=== PATIENT | female | born 1945 | race Caucasian/White ===

== ENCOUNTER 2018-05-19 18:18 | Inpatient (IN) | payer OTHER ==
[~2018-05-19] VITALS: Ht 170.2 cm; Wt 81.2 kg
[2018-05-20] VITALS (13 sets, daily range): BP systolic 95–114; BP diastolic 54–68; PULSE 64–150; RESP 18–22; Ht 170.2 cm; Wt 81.2 kg
[2018-05-20] MEDS ORDERED: GLUCAGON 1 MG INJ IM PRN (03:00)
[2018-05-20] MEDS ORDERED: ALBUTEROL/IPRATROPIUM (NEB) 3 ML AMP HHN PRN (03:00)
[2018-05-20] MEDS ORDERED: GLUCOSE GEL 15 GRAM TUBE PO PRN ×2 (03:00)
[2018-05-20] MEDS ORDERED: DEXTROSE 50% 50 ML SYRINGE IV PRN ×2 (03:00)
[2018-05-20] MEDS ORDERED: DILTIAZEM 25 MG INJ IV PRN (03:00)
[2018-05-20] MEDS ORDERED: ACETAMINOPHEN 325 MG TAB PO PRN (03:00)
[2018-05-20] MEDS ORDERED: GLUCOSE GEL 15 GRAM TUBE BUCCAL PRN (03:00)
[2018-05-20] MEDS ORDERED: LEVO-86 PO (04:10)
[2018-05-20] MEDS ORDERED: AMI25 PO (04:13)
[2018-05-20] MEDS: LEVOTHYROXINE 100 MCG TAB PO SCH (05:31)
[2018-05-20] MEDS: INSULIN ASPART [NOVOLOG] 3 ML PEN SC SCH ×4 (07:45→23:00)
[2018-05-20] MEDS: FAMOTIDINE 20 MG TAB PO SCH ×2 (08:10→20:45)
[2018-05-20] MEDS: METHYLPREDNISOLONE 40 MG INJ IV SCH (08:10)
[2018-05-20] MEDS: LISINOPRIL 5 MG TAB PO SCH (08:11)
[2018-05-20] MEDS: BUDESONIDE (NEB) 0.5MG/2ML AMP HHN SCH ×2 (09:16→21:05)
--- NOTE | 2018-05-20 18:44 | HP ---
DATE OF ADMISSION: 05/19/2018 CHIEF COMPLAINT: Shortness of breath. HISTORY OF PRESENTING ILLNESS: This is a 72-year-old female with a longstanding history of emphysema , hypertension and hypothyroidism, history of thyroid cancer in remission 4 years ago, status post ra diation, chronic history of smoking, alcohol use, who presented to [facility] on 05/15/2018 secondary to shortness of breath. According to the daughter, her mom was not feeling well, so she sh owed her to her own therapist and they told her to bring her to the emergency department. The patien jean-paul was brought into the [place] [facility]. The patient was having shortness of breath f or the past few days. The patient denied any chest pain. Her [place] records are currently not a vailable, but as per our conversation with the doctors there, the patient was found to be in COPD exa cerbation and also was found to have CHF. Echo was done that showed EF of 25% to 30%. Labs showed s odium of 133, potassium 4.5, chloride 102, bicarbonate 33, BUN of 17, creatinine 0.79. The patient a lso had a coronary angiogram done yesterday that per conversation were normal, but no official report s available. BNP was done and was 958. The patient was transferred to [facility] due to insurance reasons. PAST MEDICAL HISTORY: 1. Hypertension. 2. Hyperlipidemia. 3. COPD. 4. Cardiomyopathy. 5. Obesity. The patient was also found to be per records AFib there in [facility]. ALLERGIES: NONE. PAST SURGICAL HISTORY: Significant for . SOCIAL HISTORY: The patient is a chronic smoker, used to smoke packs per day; however, current ly uses vape. According to the daughter, the patient also drinks like 5 to 6 beers over the weekend. Denies any drug use. Currently lives at home with her daughter. MEDICATIONS: She takes at home: 1. Amitriptyline 25 p.o. at bedtime. 2. Levothyroxine 100. MEDICATIONS: She was discharged there: 1. Budesonide. 2. Coreg 3.125 b.i.d. 3. Pepcid 20 b.i.d. 4. Lisinopril 2.5. 5. Solu-Medrol 40 IV daily. 6. Levothyroxine. FAMILY HISTORY: Significant for heart problems in mother. REVIEW OF SYSTEMS: The patient states that the shortness of breath is improved. Denies any chest pa in. Denies any cough, any abdominal pain, nausea, vomiting, diarrhea. Denies any headache, any blur ry vision. Denies any focal neurological deficits. Currently on 2 liters of oxygen. EXAMINATION: VITAL SIGNS: Currently, blood pressure 95/55, temperature 97.6, pulse 84, respirations 22, saturatin g 94%. GENERAL: The patient is awake, alert, oriented, does not appear to be in any acute distress. HEENT: Pupils are equal, round, reactive to light. NECK: Supple. HEART: Regular rate and rhythm. LUNGS: Few rhonchi scattered bilaterally. ABDOMEN: Soft, nontender, nondistended, positive bowel sounds. EXTREMITIES: Trace edema. MUSCULOSKELETAL: The patient has a deformity of the back. The patient also has surgical scar on the right side of the neck. LABORATORY DATA: Shows BUN of 26, creatinine 0.64, calcium 8.8, glucose 129. White count of 9.1, he moglobin 13.9, platelet count 175. ASSESSMENT AND PLAN: This is a 72-year-old female who was admitted to [facility]: 1. Shortness of breath secondary to chronic obstructive pulmonary disease/congestive heart failure e xacerbation. 2. Nonischemic cardiomyopathy. 3. Cardiomyopathy with ejection fraction of 25% to 30%. 4. Emphysema. 5. History of nonsustained ventricular tachycardia. 6. Hypertension. 7. Hypothyroidism. 8. Obesity. 9. History of chronic smoking. PLAN: At this period of time, the patient will be admitted to telemetry. The patient will be contin ued on budesonide, Coreg, lisinopril. We will also start the patient also on Solu-Medrol. We will a lso call cardiology and pulmonary consultation. We will get an ABG and a chest x-ray. Rest of the t reatment will depend on the patient's hospitalization course. Dictated By: GLADYS HARVEY/HOSEA Conf#: [id number] DID#: [id number] CC: CAR YEN MD;*EndCC*
[2018-05-20] MEDS: AMITRIPTYLINE 25 MG TAB PO SCH (20:45)
[2018-05-20] MEDS: METOPROLOL (XL) 25 MG TAB PO SCH (20:46)
--- NOTE | 2018-05-20 23:48 | CONS ---
DATE OF ADMISSION: 05/19/2018 DATE OF CONSULTATION: 05/20/2018 REASON FOR CONSULTATION: Cardiomyopathy, congestive heart failure. REQUESTING PHYSICIAN: Kareen Casiano M.D. HISTORY OF PRESENT ILLNESS: This is a 72-year-old female with history of emphysema, hypertension, hy pothyroidism, thyroid cancer status post radiation, ongoing long-term tobacco intake with recent parmar ge to E-cigarettes when she came from [facility] to live here in the last 3 years who initially pre sented to [facility] on 05/15/2018 with complaints of dyspnea on exertion ongoing for approx imately 2 to 3 weeks. The patient states she additionally had increased phlegm production. At [place] through chart biopsy of the patient's at [place] have not been sent with her. The patient w as found to have chronic obstructive pulmonary disease exacerbation and associated congestive heart f ailure. She had 2-D echo revealing an EF of 25% to 30% and a left heart catheterization reportedly r evealing no significant obstructive major epicardial coronary artery disease. The patient continues to make improvement now has been transferred to [facility] for further evaluation a nd treatment. This is due to insurance reasons. Additionally, at the hospital, the patient was note d to have an episode of atrial fibrillation. PAST MEDICAL HISTORY: As above in HPI. MEDICATIONS CURRENTLY IN HOSPITAL: 1. Carvedilol 3.125 mg p.o. b.i.d. 2. Zestril 2.5 mg daily. 3. Synthroid. 4. Tylenol. 5. Amitriptyline. 6. Pepcid. 7. Pulmicort. 8. Solu-Medrol 40 mg IV daily. 9. Tylenol. 10. DuoNeb. 11. Diltiazem IV 10 mg q.6h. ALLERGIES: NO KNOWN DRUG ALLERGIES. SOCIAL HISTORY: Positive using tobacco, social ETOH, no illicit drug use. FAMILY HISTORY: No history of sudden cardiac or early CAD. REVIEW OF SYSTEMS: As above in HPI. CONSTITUTIONAL: No fevers, chills. PULMONARY: Shortness of breath. CARDIOVASCULAR: Congestive heart failure, cardiomyopathy, decreased left ventricular ejection fracti on. GASTROINTESTINAL: No vomiting. GENITOURINARY: No hematuria. MUSCULOSKELETAL: Degenerative joint disease. PSYCHIATRIC: The patient denies depression. NEUROLOGIC: No documented history of CVA. ENDOCRINE: Hypothyroidism, diabetes mellitus. PHYSICAL EXAMINATION: VITAL SIGNS: Temperature of 97.9, blood pressure 105/56, pulse 84, respirations 20, sat 95%. GENERAL: The patient is alert, awake, no acute distress. NECK: JVP approximately 8 to 9 cm of water. CHEST: Fair air movement throughout. HEART: Regular rate and rhythm. Normal S1, S2, I/ systolic murmur, nondisplaced PMI. ABDOMEN: Positive bowel sounds, soft. EXTREMITIES: No significant pitting edema, 1+ pulses bilateral posterior tibial. LABORATORIES: As above in HPI with a white count of 9.1, hemoglobin 10.9, platelet count 175. Sodiu m 139, potassium 4.9, creatinine of 0.6, BUN 29. HbA1c of 6.5, glucose of 228. ABG revealing a pH o f 7.372, PaO2 of 80, pCO2 of 68. IMAGING STUDIES: As above in HPI. No further imaging studies for my review at this time. ELECTROCARDIOGRAMS: No electrocardiograms for my review at this time. IMPRESSION: 1. Congestive heart failure, mitral valve, systolic, acute. 2. Cardiomyopathy with decreased left ventricular ejection fraction noted to be 25% to 30% by [facility] echo. 3. Hypertension with currently borderline hypotension. 4. Diabetes mellitus. 5. Hypothyroidism. 6. Ongoing tobacco usage, but with E-cigarettes at this time. 7. Chronic obstructive pulmonary disease. RECOMMENDATIONS: 1. At this time, we would maintain the patient on telemetry monitoring to follow rhythm and rate con trol closely. 2. Continue the patient's current Lisinopril. We will change the patient's carvedilol to beta 1 patrice ective beta robbi so as not to provoke any bronchospasm in the setting of a chronic obstructive pul monary disease. 3. We would likely place patient on low dose standing Lasix to assure good volume status. 4. We would obtain the patient's outside hospital records for 2D echo and left heart catheterization . 5. We would maintain the patient on telemetry. The patient on telemetry to assess for significant n kelly disorders in the setting of low EF. Additionally, given the patient's low EF, we would consider initiation of low dose Aldactone for neurohormonal modulation setting of systolic heart failure. Thank you for allowing me to take part in the care of this patient. I will continue to follow along very closely with you. Further recommendations will be made as the patient progresses through her in patient hospital clinical course. Dictated By: CAR LOWE/HOSEA Conf#: [id number] DID#: [id number] CC: CAR YEN MD; KAREEN CASIANO;*EndCC*
[2018-05-21] VITALS (15 sets, daily range): BP systolic 95–110; BP diastolic 50–63; PULSE 58–107; RESP 17–19
[2018-05-21] MEDS: LEVOTHYROXINE 100 MCG TAB PO SCH (06:30)
[2018-05-21] MEDS: INSULIN ASPART [NOVOLOG] 3 ML PEN SC SCH ×4 (08:00→22:24)
[2018-05-21] MEDS: BUDESONIDE (NEB) 0.5MG/2ML AMP HHN SCH ×2 (08:48→20:00)
[2018-05-21] MEDS: SPIRONOLACTONE 25 MG TAB PO SCH (09:12)
[2018-05-21] MEDS: METHYLPREDNISOLONE 40 MG INJ IV SCH (09:12)
[2018-05-21] MEDS: FAMOTIDINE 20 MG TAB PO SCH ×2 (09:12→21:56)
[2018-05-21] MEDS: FUROSEMIDE 20 MG TAB PO SCH (09:13)
[2018-05-21] MEDS: LISINOPRIL 5 MG TAB PO SCH (09:13)
[2018-05-21] MEDS: METOPROLOL (XL) 25 MG TAB PO SCH ×2 (09:14→21:58)
--- NOTE | 2018-05-21 10:30 | CONS ---
Assessment/Plan Assessment/Plan Assessment/Plan (Daily) Chest x-ray showing mild cardiomegaly with very minimal pulmonary vascular congestion. Assessment recommendations; 1. Patient admitted with history of what appears to be recent bronchitis with interval improvement on current treatment regimen. 2. Likely underlying COPD. With chronic type II respiratory failure. 3. History of right neck cancer status post surgical resection several years ago. 4. History of hypothyroidism and hypertension. 5. Mild CHF. Obtain repeat ABG. Wean down FiO2 to keep O2 saturation around 88-90%. Add DuoNeb every 6 hours scheduled. If the patient has persistent hypercapnia she would need noninvasive positive pressure ventilator for nocturnal use at home. Consultation Date/Type/Reason Admit Date/Time May 19, 2018 at 23:47 Date of Consultation: May 21, 2018 Type of Consult Pulmonary Patient is a 72-year-old lady who came into the hospital with a 2-day history of coughing with some shortness of breath. Upon evaluation a chest x-ray was done which is showing mild cardiomegaly, ABG also was done which is showing hypoxemic and hypercapnic respiratory failure which is partly compensated. By the time I saw the patient in the room, patient feeling much better and denies any further shortness of breath, also denies any nocturnal symptoms of shortness of breath at home, any daytime sleepiness or fatigue. According to her she is in generally good health at home. She denies any recent high fever, body aches or myalgias. Past medical history; 1 history of head and neck cancer, status post extensive right neck resection several years ago. 2. History of hypertension 3. Possibly COPD with chronic type II respiratory failure. 4. History of hypothyroidism. Medications; reviewed. Allergies; none. Social history; patient has an extensive smoking history. Family history; patient lives with her daughter at home. No history of any malignancy in the family. 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 Review of systems; denies any headache, seizures, visual changes. Any sinus symptoms. Denies any dysphagia. Shortness of breath has improved significantly since admission. Complains of very minimal cough, denies any wheezing, sputum production hemoptysis. Denies any abdominal pain, nausea vomiting. Any fever or chills. Any body aches or myalgias. Any orthopnea. Any snoring, daytime sleepiness or fatigue. General exam; elderly lady, awake alert, currently in no distress. On 2 L nasal cannula. Date/Time of Note DATE: 05/21/18 TIME: 10:26 Past Medical History Home Meds Reported Medications Amitriptyline Hcl* (Elavil*) 25 Mg Tab, 25 MG PO HS, #30 TAB 05/20/18 Levothyroxine Sodium* (Synthroid*) 100 Mcg Tablet, 100 MCG PO BEFORE BREAKFAST, #30 TAB 05/20/18 Medications Current Medications Acetaminophen (Tylenol Tab) 650 mg Q6H PRN PO MILD PAIN(1-3)OR ELEVATED TEMP; Start 05/20/18 at 03:00 Insulin Aspart (Novolog Insulin Pen) NOVOLOG *MILD* ALGORITHM WITH MEALS BEDTIME SC Last administered on 05/20/18at 23:00; Admin Dose 2 UNIT; Start 05/20/18 at 08:00 Amitriptyline HCl (Elavil) 25 mg HS PO Last administered on 05/20/18at 20:45; Admin Dose 25 MG; Start 05/20/18 at 21:00 Budesonide (Pulmicort (Neb)) 0.5 mg BID RESP THERAPY HHN Last administered on 05/21/18at 08:48; Admin Dose 0.5 MG; Start 05/20/18 at 09:00 Diltiazem HCl (Cardizem Iv) 10 mg Q6 PRN IV ELEVATED HEART RATE; Start 05/20/18 at 03:00 Famotidine (Pepcid) 20 mg BID PO Last administered on 05/21/18at 09:12; Admin Dose 20 MG; Start 05/20/18 at 09:00 Albuterol/ Ipratropium (Duoneb) 3 ml Q4H RESP THERAPY PRN HHN SHORTNESS OF BREATH Last administered on 05/20/18at 21:05; Admin Dose 3 ML; Start 05/20/18 at 03:00 Levothyroxine Sodium (Synthroid) 100 mcg DAILY@06 PO Last administered on 05/21/18at 06:30; Admin Dose 100 MCG; Start 05/20/18 at 06:00 Lisinopril (Zestril) 2.5 mg DAILY PO Last administered on 05/21/18at 09:13; Admin Dose 2.5 MG; Start 05/20/18 at 09:00 Methylprednisolone Sodium Succinate (Solu-Medrol) 40 mg DAILY IV Last administered on 05/21/18at 09:12; Admin Dose 40 MG; Start 05/20/18 at 09:00 Miscellaneous Information 1 ea NOTE XX ; Start 05/20/18 at 03:00 Glucose (Glutose) 15 gm Q15M PRN PO DECREASED GLUCOSE; Start 05/20/18 at 03:00 Glucose (Glutose) 22.5 gm Q15M PRN PO DECREASED GLUCOSE; Start 05/20/18 at 03:00 Dextrose (D50w Syringe) 25 ml Q15M PRN IV DECREASED GLUCOSE; Start 05/20/18 at 03:00 Dextrose (D50w Syringe) 50 ml Q15M PRN IV DECREASED GLUCOSE; Start 05/20/18 at 03:00 Glucagon (Glucagen) 1 mg Q15M PRN IM DECREASED GLUCOSE; Start 05/20/18 at 03:00 Glucose (Glutose) 15 gm Q15M PRN BUCCAL DECREASED GLUCOSE; Start 05/20/18 at 03:00 Metoprolol Succinate (Toprol Xl) 12.5 mg BID PO Last administered on 05/21/18at 09:14; Admin Dose 12.5 MG; Start 05/20/18 at 21:00 Spironolactone (Aldactone) 12.5 mg DAILY PO Last administered on 05/21/18at 09:12; Admin Dose 12.5 MG; Start 05/21/18 at 09:00 Furosemide (Lasix) 20 mg DAILY PO Last administered on 05/21/18at 09:13; Admin Dose 20 MG; Start 05/21/18 at 09:00 Allergies: Coded Allergies: No Known Allergy (Unverified , 05/20/18) Social History Smoking Status: Former smoker Exam/Review of Systems Exam Vitals Vital Signs Date Temp Pulse Resp B/P (MAP) Pulse Ox O2 O2 Flow FiO2 Time Delivery Rate 05/21/18 96 3.0 08:52 05/21/18 94 20 Nasal 08:51 Cannula 05/21/18 98.0 106/62 07:19 (77) Intake and Output 05/20/18 05/20/18 05/21/18 1515:00 23:00 07:00 IntakeIntake Total 900 ml 360 ml BalanceBalance 900 ml 360 ml Exam H EENT exam; supple neck, no JVD. No lymphadenopathy. Midline trachea. No thyromegaly. No neck masses. There are extensive postsurgical right neck changes. Patient has 2 remaining carious teeth. Chest exam; diminished but clear breath sounds. S1-S2 audible, no murmurs. Regular rhythm. Abdomen exam; soft, nontender. No organomegaly. Bowel sounds audible. Extremity exam; no peripheral edema. Patient does have patchy ecchymosis. 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 Results Result Diagram: 05/21/18 0535 05/21/18 0535 Results 24hrs Laboratory Tests Test 05/20/18 12:00 05/20/18 15:30 05/20/18 17:35 05/20/18 20:31 Bedside Glucose 187 228 H 233 H Blood Gas Blood arterial Specimen Source Arterial Blood 05/20/2018 4:15:3 Date Drawn 9 PM Arterial Blood pH 7.372 (Temp corrected) Arterial Blood 68.6 H pCO2 (Temp correct) Arterial Blood 80.9 pO2 (Temp corrected) Arterial Blood 38.9 H HCO3 Arterial Blood 10.5 H Base Excess Arterial Blood 95.5 Oxygen Saturation Cassius Test ACCEPTAB Arterial Blood Right Radial Gas Puncture Site Arterial 0.7 Blood Carboxyhemo globin Arterial Blood 0.2 Methemoglobin Blood Gas A-a O2 30.5 H Differential Oxyhemoglobin 94.6 Percent Blood Gas 37.0 Temperature Blood Gas NASAL CANNULA Modality FiO2 27.0 Blood Gas Notified Whom Blood Gas 05/20/2018 4:23:0 Notified Time 9 PM Test 05/21/18 01:40 05/21/18 05:35 Bedside Glucose 130 White Blood Count 9.2 Red Blood Count 4.55 Hemoglobin 13.8 Hematocrit 43.4 Mean Corpuscular 95.4 Volume Mean Corpuscular 30.3 Hemoglobin Mean Corpuscular 31.8 L Hemoglobin Concen t Red Cell 13.2 Distribution Width Platelet Count 179 Mean Platelet 10.2 Volume Immature 0.900 H Granulocytes % Neutrophils % 78.4 H Lymphocytes % 12.5 L Monocytes % 7.7 Eosinophils % 0.5 Basophils % 0.0 Nucleated Red 0.0 Blood Cells % Immature 0.080 H Granulocytes # Neutrophils # 7.2 Lymphocytes # 1.2 Monocytes # 0.7 Eosinophils # 0.1 Basophils # 0.0 Nucleated Red 0.0 Blood Cells # Sodium Level 138 Potassium Level 4.9 Chloride Level 96 L Carbon Dioxide 39 H Level Anion Gap 3 L Blood Urea 32 H Nitrogen Creatinine 0.67 Est Glomerular Filtrat Rate mL/min Glucose Level 140 Calcium Level 8.7 Phosphorus Level 4.5 Magnesium Level 2.1 Troponin I 0.122 *H B-Type 2510 H Natriuretic Peptide Triglycerides 57 Level Cholesterol Level 130 LDL Cholesterol, 54 Calculated HDL Cholesterol 65 Cholesterol/HDL 2.0 Ratio Medications Medication Current Medications Acetaminophen (Tylenol Tab) 650 mg Q6H PRN PO MILD PAIN(1-3)OR ELEVATED TEMP; Start 05/20/18 at 03:00 Insulin Aspart (Novolog Insulin Pen) NOVOLOG *MILD* ALGORITHM WITH MEALS BEDTIME SC Last administered on 05/20/18 23:00; Admin Dose 2 UNIT; Start 05/20/18 at 08:00 Amitriptyline HCl (Elavil) 25 mg HS PO Last administered on 05/20/18 20:45; Admin Dose 25 MG; Start 05/20/18 at 21:00 Budesonide (Pulmicort (Neb)) 0.5 mg BID RESP THERAPY HHN Last administered on 05/21/18 08:48; Admin Dose 0.5 MG; Start 05/20/18 at 09:00 Diltiazem HCl (Cardizem Iv) 10 mg Q6 PRN IV ELEVATED HEART RATE; Start 05/20/18 at 03:00 Famotidine (Pepcid) 20 mg BID PO Last administered on 05/21/18 09:12; Admin Dose 20 MG; Start 05/20/18 at 09:00 Albuterol/ Ipratropium (Duoneb) 3 ml Q4H RESP THERAPY PRN HHN SHORTNESS OF BREATH Last administered on 05/20/18 21:05; Admin Dose 3 ML; Start 05/20/18 at 03:00 Levothyroxine Sodium (Synthroid) 100 mcg DAILY@06 PO Last administered on 05/21/18 06:30; Admin Dose 100 MCG; Start 05/20/18 at 06:00 Lisinopril (Zestril) 2.5 mg DAILY PO Last administered on 05/21/18 09:13; Admin Dose 2.5 MG; Start 05/20/18 at 09:00 Methylprednisolone Sodium Succinate (Solu-Medrol) 40 mg DAILY IV Last administered on 4/12/19at 09:12; Admin Dose 40 MG; Start 05/20/18 at 09:00 Miscellaneous Information 1 ea NOTE XX ; Start 05/20/18 at 03:00 Glucose (Glutose) 15 gm Q15M PRN PO DECREASED GLUCOSE; Start 05/20/18 at 03:00 Glucose (Glutose) 22.5 gm Q15M PRN PO DECREASED GLUCOSE; Start 05/20/18 at 03:00 Dextrose (D50w Syringe) 25 ml Q15M PRN IV DECREASED GLUCOSE; Start 05/20/18 at 03:00 Dextrose (D50w Syringe) 50 ml Q15M PRN IV DECREASED GLUCOSE; Start 05/20/18 at 03:00 Glucagon (Glucagen) 1 mg Q15M PRN IM DECREASED GLUCOSE; Start 05/20/18 at 03:00 Glucose (Glutose) 15 gm Q15M PRN BUCCAL DECREASED GLUCOSE; Start 05/20/18 at 03:00 Metoprolol Succinate (Toprol Xl) 12.5 mg BID PO Last administered on 05/21/18at 09:14; Admin Dose 12.5 MG; Start 05/20/18 at 21:00 Spironolactone (Aldactone) 12.5 mg DAILY PO Last administered on 05/21/18at 09:12; Admin Dose 12.5 MG; Start 05/21/18 at 09:00 Furosemide (Lasix) 20 mg DAILY PO Last administered on 05/21/18at 09:13; Admin Dose 20 MG; Start 05/21/18 at 09:00 ROSAURA KU May 21, 2018 10:30
--- NOTE | 2018-05-21 14:16 | RADRPT ---
Vent Rate: 78 bpm RR Interval: 0 msec FL Interval: 132 msec QRS Duration: 158 msec QT Interval: 436 msec QTC Interval: 497 msec P-R-T [place]: 68 - 24 - 0 degrees Sinus rhythm with occasional premature ventricular complexes Left bundle branch block Abnormal ECG Electronically Signed By: Maksim Powell
--- NOTE | 2018-05-21 16:06 | PN ---
Date/Time of Note Date/Time of Note DATE: 05/21/18 TIME: 16:03 Assessment/Plan VTE Prophylaxis Risk score (from Ns)>0 risk: 6 SCD applied (from Ns): Yes Pharmacological prophylaxis: NA/contraindicated Pharm contraindication: low risk/ambulating Lines/Catheters IV Catheter Type (from Nrs): Saline Lock Assessment/Plan Assessment/Plan ASSESSMENT AND PLAN: This is a 72-year-old female who was admitted to [facility]: 1. Shortness of breath secondary to chronic obstructive pulmonary disease/congestive heart failure exacerbation. 2. Nonischemic cardiomyopathy. 3. Cardiomyopathy with ejection fraction of 25% to 30%. 4. l ikely underlying COPD. With chronic type II respiratory failure. 5. History of nonsustained ventricular tachycardia. 6. Hypertension. 7. Hypothyroidism. 8. Obesity. 9. History of chronic smoking. Plan -Continue with aspirin /statin/ beta-robbi -cw gentle Lasix/spironolactone -IV Diamox for metabolic alkalosis -cw with lisinopril 2.5 -Troponin elevated. However angiogram at [facility] was normal will get official cath reports -DuoNeb/Solu-Medrol - ? nbipap -fu up with the cardiology/pul Raj gi -/DVT prophylaxis Result Diagram: 05/21/18 0535 05/21/18 0535 Results 24hrs Laboratory Tests Test 05/20/18 17:35 05/20/18 20:31 05/21/18 01:40 05/21/18 05:35 Bedside Glucose 228 H 233 H 130 White Blood Count 9.2 Red Blood Count 4.55 Hemoglobin 13.8 Hematocrit 43.4 Mean Corpuscular 95.4 Volume Mean Corpuscular 30.3 Hemoglobin Mean Corpuscular 31.8 L Hemoglobin Concent Red Cell 13.2 Distribution Width Platelet Count 179 Mean Platelet Volume 10.2 Immature 0.900 H Granulocytes % Neutrophils % 78.4 H Lymphocytes % 12.5 L Monocytes % 7.7 Eosinophils % 0.5 Basophils % 0.0 Nucleated Red Blood 0.0 Cells % Immature 0.080 H Granulocytes # Neutrophils # 7.2 Lymphocytes # 1.2 Monocytes # 0.7 Eosinophils # 0.1 Basophils # 0.0 Nucleated Red Blood 0.0 Cells # Sodium Level 138 Potassium Level 4.9 Chloride Level 96 L Carbon Dioxide Level 39 H Anion Gap 3 L Blood Urea Nitrogen 32 H Creatinine 0.67 Est Glomerular Filtrat Rate mL/min Glucose Level 140 Calcium Level 8.7 Phosphorus Level 4.5 Magnesium Level 2.1 Troponin I 0.122 *H B-Type Natriuretic 2510 H Peptide Triglycerides Level 57 Cholesterol Level 130 LDL Cholesterol, 54 Calculated HDL Cholesterol 65 Cholesterol/HDL 2.0 Ratio Test 05/21/18 11:51 Bedside Glucose 173 Subjective 24 Hr Interval Summary Free Text/Dictation Short of breath at times. Exam/Review of Systems Exam Vitals Vital Signs Date Temp Pulse Resp B/P (MAP) Pulse Ox O2 O2 Flow FiO2 Time Delivery Rate 05/21/18 98.2 89 19 110/62 95 15:12 (78) 05/21/18 1.0 13:47 05/21/18 Nasal 13:46 Cannula Intake and Output 05/20/18 05/20/18 05/21/18 1515:00 23:00 07:00 IntakeIntake Total 900 ml 360 ml BalanceBalance 900 ml 360 ml Exam GENERAL: The patient is awake, alert, oriented, does not appear to be in any acute distress. HEENT: Pupils are equal, round, reactive to light. NECK: Supple. HEART: Regular rate and rhythm. LUNGS: Few rhonchi scattered bilaterally. ABDOMEN: Soft, nontender, nondistended, positive bowel sounds. EXTREMITIES: Trace edema. MUSCULOSKELETAL: The patient has a deformity of the back. The patient also has surgical scar on the right side of the neck. Results Results 24hrs Laboratory Tests Test 05/20/18 17:35 05/20/18 20:31 05/21/18 01:40 05/21/18 05:35 Bedside Glucose 228 H 233 H 130 White Blood Count 9.2 Red Blood Count 4.55 Hemoglobin 13.8 Hematocrit 43.4 Mean Corpuscular 95.4 Volume Mean Corpuscular 30.3 Hemoglobin Mean Corpuscular 31.8 L Hemoglobin Concent Red Cell 13.2 Distribution Width Platelet Count 179 Mean Platelet Volume 10.2 Immature 0.900 H Granulocytes % Neutrophils % 78.4 H Lymphocytes % 12.5 L Monocytes % 7.7 Eosinophils % 0.5 Basophils % 0.0 Nucleated Red Blood 0.0 Cells % Immature 0.080 H Granulocytes # Neutrophils # 7.2 Lymphocytes # 1.2 Monocytes # 0.7 Eosinophils # 0.1 Basophils # 0.0 Nucleated Red Blood 0.0 Cells # Sodium Level 138 Potassium Level 4.9 Chloride Level 96 L Carbon Dioxide Level 39 H Anion Gap 3 L Blood Urea Nitrogen 32 H Creatinine 0.67 Est Glomerular Filtrat Rate mL/min Glucose Level 140 Calcium Level 8.7 Phosphorus Level 4.5 Magnesium Level 2.1 Troponin I 0.122 *H B-Type Natriuretic 2510 H Peptide Triglycerides Level 57 Cholesterol Level 130 LDL Cholesterol, 54 Calculated HDL Cholesterol 65 Cholesterol/HDL 2.0 Ratio Test 05/21/18 11:51 Bedside Glucose 173 Medications Medication Current Medications Acetaminophen (Tylenol Tab) 650 mg Q6H PRN PO MILD PAIN(1-3)OR ELEVATED TEMP; Start 05/20/18 at 03:00 Insulin Aspart (Novolog Insulin Pen) NOVOLOG *MILD* ALGORITHM WITH MEALS BEDTIME SC Last administered on 05/21/18 11:56; Admin Dose 1 UNIT; Start 05/20/18 at 08:00 Amitriptyline HCl (Elavil) 25 mg HS PO Last administered on 05/20/18 20:45; Admin Dose 25 MG; Start 05/20/18 at 21:00 Budesonide (Pulmicort (Neb)) 0.5 mg BID RESP THERAPY HHN Last administered on 05/21/18 08:48; Admin Dose 0.5 MG; Start 05/20/18 at 09:00 Diltiazem HCl (Cardizem Iv) 10 mg Q6 PRN IV ELEVATED HEART RATE; Start 05/20/18 at 03:00 Famotidine (Pepcid) 20 mg BID PO Last administered on 05/21/18 09:12; Admin Dose 20 MG; Start 05/20/18 at 09:00 Albuterol/ Ipratropium (Duoneb) 3 ml Q4H RESP THERAPY PRN HHN SHORTNESS OF BREATH Last administered on 05/20/18 21:05; Admin Dose 3 ML; Start 05/20/18 at 03:00 Levothyroxine Sodium (Synthroid) 100 mcg DAILY@06 PO Last administered on 05/21/18 06:30; Admin Dose 100 MCG; Start 05/20/18 at 06:00 Lisinopril (Zestril) 2.5 mg DAILY PO Last administered on 05/21/18 09:13; Admin Dose 2.5 MG; Start 05/20/18 at 09:00 Methylprednisolone Sodium Succinate (Solu-Medrol) 40 mg DAILY IV Last administered on 05/21/18at 09:12; Admin Dose 40 MG; Start 05/20/18 at 09:00 Miscellaneous Information 1 ea NOTE XX ; Start 05/20/18 at 03:00 Glucose (Glutose) 15 gm Q15M PRN PO DECREASED GLUCOSE; Start 05/20/18 at 03:00 Glucose (Glutose) 22.5 gm Q15M PRN PO DECREASED GLUCOSE; Start 05/20/18 at 03:00 Dextrose (D50w Syringe) 25 ml Q15M PRN IV DECREASED GLUCOSE; Start 05/20/18 at 03:00 Dextrose (D50w Syringe) 50 ml Q15M PRN IV DECREASED GLUCOSE; Start 05/20/18 at 03:00 Glucagon (Glucagen) 1 mg Q15M PRN IM DECREASED GLUCOSE; Start 05/20/18 at 03:00 Glucose (Glutose) 15 gm Q15M PRN BUCCAL DECREASED GLUCOSE; Start 05/20/18 at 03:00 Metoprolol Succinate (Toprol Xl) 12.5 mg BID PO Last administered on 05/21/18at 09:14; Admin Dose 12.5 MG; Start 05/20/18 at 21:00 Spironolactone (Aldactone) 12.5 mg DAILY PO Last administered on 05/21/18at 09:12; Admin Dose 12.5 MG; Start 05/21/18 at 09:00 Furosemide (Lasix) 20 mg DAILY PO Last administered on 05/21/18at 09:13; Admin Dose 20 MG; Start 05/21/18 at 09:00 Albuterol/ Ipratropium (Duoneb) 3 ml Q6H RESP THERAPY N ; Start 05/21/18 at 14:00 Acetazolamide (Diamox) 500 mg ONCE ONCE IV ; Start 05/21/18 at 16:30; Stop 05/21/18 at 16:31; Status GLADYS HESTER MD May 21, 2018 16:06
[2018-05-21] MEDS: ALBUTEROL/IPRATROPIUM (NEB) 3 ML AMP HHN SCH ×2 (16:56→19:59)
[2018-05-21] MEDS ORDERED: ACETAZOLAMIDE 500 MG INJ IV ONE (17:00)
[2018-05-21] MEDS: ENOXAPARIN 40 MG/0.4 ML SYG SC SCH (17:20)
--- NOTE | 2018-05-21 17:20 | CONS ---
Assessment/Plan Assessment/Plan Hospital Course (Demo Recall) IMPRESSION: 1. Congestive heart failure, mitral valve, systolic, acute. 2. Cardiomyopathy with decreased left ventricular ejection fraction noted to be 25% to 30% by outside hospital echo. 3. Hypertension with currently borderline hypotension. 4. Diabetes mellitus. 5. Hypothyroidism. 6. Ongoing tobacco usage, but with E-cigarettes at this time. 7. Chronic obstructive pulmonary disease. 8. Positive troponin-reportedly negative LHC at OSH Recc: -Tele -Continue BB/ACEI -Continue lasix/aldactone and follow volume status closely -start asa -trend cardiac enzymes -await records from [facility] where LHC done Consultation Date/Type/Reason Admit Date/Time May 19, 2018 at 23:47 Initial Consult Date 05/21/18 Type of Consult Cardiology Reason for Consultation CHF/positive troponin Requesting Provider: GLADYS CASIANO MD Date/Time of Note DATE: 05/21/18 TIME: 17:16 Exam/Review of Systems Vital Signs Vitals Vital Signs Date Temp Pulse Resp B/P (MAP) Pulse Ox O2 O2 Flow FiO2 Time Delivery Rate 05/21/18 86 18 92 Aerosol 1.0 16:54 Non Rebreather Mask 05/21/18 98.2 110/62 15:12 (78) Intake and Output 05/20/18 05/20/18 05/21/18 1515:00 23:00 07:00 IntakeIntake Total 900 ml 360 ml BalanceBalance 900 ml 360 ml Exam Exam Review of Systems: CONSTITUTIONAL: No fevers, chills. PULMONARY: No sob CARDIOVASCULAR: No chest pain/palpitations GASTROINTESTINAL: No nausea/vomiting. GENITOURINARY: No hematuria/dysuria. MUSCULOSKELETAL: No myagias/arthalgias. PSYCHIATRIC: The patient denies depression. NEUROLOGIC: No weakness Constitutional: alert, oriented Psych: no complaints Head: normocephalic ENMT: mucosa pink and moist Neck: supple, jvd (9 cm water) Respiratory: diminished breath sounds Cardiovascular: regular rate and rhythm Gastrointestinal: soft, non-tender Musculoskeletal: muscle tone (normal) Extremities: edema (none) Neurological: other (No focal deficits) Labs Result Diagram: 05/21/18 0535 05/21/18 0535 Results 24hrs Laboratory Tests Test 05/20/18 17:35 05/20/18 20:31 05/21/18 01:40 05/21/18 05:35 Bedside Glucose 228 H 233 H 130 White Blood Count 9.2 Red Blood Count 4.55 Hemoglobin 13.8 Hematocrit 43.4 Mean Corpuscular 95.4 Volume Mean Corpuscular 30.3 Hemoglobin Mean Corpuscular 31.8 L Hemoglobin Concent Red Cell 13.2 Distribution Width Platelet Count 179 Mean Platelet Volume 10.2 Immature 0.900 H Granulocytes % Neutrophils % 78.4 H Lymphocytes % 12.5 L Monocytes % 7.7 Eosinophils % 0.5 Basophils % 0.0 Nucleated Red Blood 0.0 Cells % Immature 0.080 H Granulocytes # Neutrophils # 7.2 Lymphocytes # 1.2 Monocytes # 0.7 Eosinophils # 0.1 Basophils # 0.0 Nucleated Red Blood 0.0 Cells # Sodium Level 138 Potassium Level 4.9 Chloride Level 96 L Carbon Dioxide Level 39 H Anion Gap 3 L Blood Urea Nitrogen 32 H Creatinine 0.67 Est Glomerular Filtrat Rate mL/min Glucose Level 140 Calcium Level 8.7 Phosphorus Level 4.5 Magnesium Level 2.1 Troponin I 0.122 *H B-Type Natriuretic 2510 H Peptide Triglycerides Level 57 Cholesterol Level 130 LDL Cholesterol, 54 Calculated HDL Cholesterol 65 Cholesterol/HDL 2.0 Ratio Test 05/21/18 11:51 Bedside Glucose 173 Medications Medications Current Medications Acetaminophen (Tylenol Tab) 650 mg Q6H PRN PO MILD PAIN(1-3)OR ELEVATED TEMP; Start 05/20/18 at 03:00 Insulin Aspart (Novolog Insulin Pen) NOVOLOG *MILD* ALGORITHM WITH MEALS BEDTIME SC Last administered on 05/21/18at 11:56; Admin Dose 1 UNIT; Start 05/20/18 at 08:00 Amitriptyline HCl (Elavil) 25 mg HS PO Last administered on 05/20/18at 20:45; Admin Dose 25 MG; Start 05/20/18 at 21:00 Budesonide (Pulmicort (Neb)) 0.5 mg BID RESP THERAPY HHN Last administered on 05/21/18at 08:48; Admin Dose 0.5 MG; Start 05/20/18 at 09:00 Diltiazem HCl (Cardizem Iv) 10 mg Q6 PRN IV ELEVATED HEART RATE; Start 05/20/18 at 03:00 Famotidine (Pepcid) 20 mg BID PO Last administered on 05/21/18 09:12; Admin Dose 20 MG; Start 05/20/18 at 09:00 Albuterol/ Ipratropium (Duoneb) 3 ml Q4H RESP THERAPY PRN HHN SHORTNESS OF BREATH Last administered on 05/20/18at 21:05; Admin Dose 3 ML; Start 05/20/18 at 03:00 Levothyroxine Sodium (Synthroid) 100 mcg DAILY@06 PO Last administered on 05/21/18 06:30; Admin Dose 100 MCG; Start 05/20/18 at 06:00 Lisinopril (Zestril) 2.5 mg DAILY PO Last administered on 05/21/18 09:13; Admin Dose 2.5 MG; Start 05/20/18 at 09:00 Methylprednisolone Sodium Succinate (Solu-Medrol) 40 mg DAILY IV Last administered on 05/21/18 09:12; Admin Dose 40 MG; Start 05/20/18 at 09:00 Miscellaneous Information 1 ea NOTE XX ; Start 05/20/18 at 03:00 Glucose (Glutose) 15 gm Q15M PRN PO DECREASED GLUCOSE; Start 05/20/18 at 03:00 Glucose (Glutose) 22.5 gm Q15M PRN PO DECREASED GLUCOSE; Start 05/20/18 at 03:00 Dextrose (D50w Syringe) 25 ml Q15M PRN IV DECREASED GLUCOSE; Start 05/20/18 at 03:00 Dextrose (D50w Syringe) 50 ml Q15M PRN IV DECREASED GLUCOSE; Start 05/20/18 at 03:00 Glucagon (Glucagen) 1 mg Q15M PRN IM DECREASED GLUCOSE; Start 05/20/18 at 03:00 Glucose (Glutose) 15 gm Q15M PRN BUCCAL DECREASED GLUCOSE; Start 05/20/18 at 03:00 Metoprolol Succinate (Toprol Xl) 12.5 mg BID PO Last administered on 05/21/18 09:14; Admin Dose 12.5 MG; Start 05/20/18 at 21:00 Spironolactone (Aldactone) 12.5 mg DAILY PO Last administered on 05/21/18 09:12; Admin Dose 12.5 MG; Start 05/21/18 at 09:00 Furosemide (Lasix) 20 mg DAILY PO Last administered on 4/12/19at 09:13; Admin Dose 20 MG; Start 05/21/18 at 09:00 Albuterol/ Ipratropium (Duoneb) 3 ml Q6H RESP THERAPY HHN Last administered on 05/21/18at 16:56; Admin Dose 3 ML; Start 05/21/18 at 14:00 Enoxaparin Sodium (Lovenox) 40 mg DAILY SC ; Start 05/21/18 at 16:30 CAR YEN May 21, 2018 17:20
[2018-05-21] MEDS: AMITRIPTYLINE 25 MG TAB PO SCH (21:56)
[2018-05-22] VITALS (13 sets, daily range): BP systolic 85–121; BP diastolic 51–71; PULSE 64–91; RESP 17–18
[2018-05-22] MEDS: ALBUTEROL/IPRATROPIUM (NEB) 3 ML AMP HHN SCH ×4 (02:18→21:02)
[2018-05-22] MEDS: LEVOTHYROXINE 100 MCG TAB PO SCH (06:30)
[2018-05-22] MEDS: SPIRONOLACTONE 25 MG TAB PO SCH (08:55)
[2018-05-22] MEDS: LISINOPRIL 5 MG TAB PO SCH (08:55)
[2018-05-22] MEDS: METHYLPREDNISOLONE 40 MG INJ IV SCH (08:56)
[2018-05-22] MEDS: ASPIRIN 81 MG TAB PO SCH (08:56)
[2018-05-22] MEDS: FUROSEMIDE 20 MG TAB PO SCH (08:56)
[2018-05-22] MEDS: FAMOTIDINE 20 MG TAB PO SCH ×2 (08:56→20:25)
[2018-05-22] MEDS: METOPROLOL (XL) 25 MG TAB PO SCH ×2 (08:57→20:26)
[2018-05-22] MEDS: ENOXAPARIN 40 MG/0.4 ML SYG SC SCH (09:10)
[2018-05-22] MEDS: INSULIN ASPART [NOVOLOG] 3 ML PEN SC SCH ×4 (09:10→20:38)
[2018-05-22] MEDS: BUDESONIDE (NEB) 0.5MG/2ML AMP HHN SCH ×2 (09:34→21:03)
--- NOTE | 2018-05-22 10:49 | CONS ---
Consult Date/Type/Reason Admit Date/Time May 19, 2018 at 23:47 Initial Consult Date 05/21/18 Type of Consult Pulmonary Requesting Provider: GLADYS CASIANO MD Date/Time of Note DATE: 05/22/18 TIME: 10:48 Subjective Comfortable this morning. Denies shortness of breath Objective Vital Signs Date Temp Pulse Resp B/P (MAP) Pulse Ox O2 O2 Flow FiO2 Time Delivery Rate 05/22/18 2.0 09:27 05/22/18 80 20 99 Nasal 09:25 Cannula 05/22/18 108/62 08:58 (77) 05/22/18 98.1 07:19 Intake and Output 05/21/18 05/21/18 05/22/18 1515:00 23:00 07:00 IntakeIntake Total 1200 ml 350 ml OutputOutput Total 860 ml BalanceBalance 1200 ml -510 ml Exam GENERAL: Elderly lady comfortable at rest talking in full complete sentences VITAL SIGNS: per chart NECK: Supple. No JVD or lymphadenopathy. CARDIAC EXAM: S1, S2. No added sounds or murmurs. CHEST: clear bilaterally, No added sounds, rales or wheezes ABDOMEN: Soft, nontender. No guarding or rebound. EXTREMITIES: No cyanosis, clubbing or edema. NEUROLOGIC: Generalized weakness. No focal deficits. Results/Medications Result Diagram: 05/22/18 0531 05/22/18 0531 Results 24 hrs Laboratory Tests Test 05/21/18 11:51 05/21/18 17:06 05/21/18 21:53 05/22/18 02:35 Bedside Glucose 173 246 H 247 H 122 Test 05/22/18 05:31 05/22/18 08:46 White Blood Count 9.6 Red Blood Count 4.58 Hemoglobin 14.1 Hematocrit 43.6 Mean Corpuscular 95.2 Volume Mean Corpuscular 30.8 Hemoglobin Mean Corpuscular 32.3 Hemoglobin Concent Red Cell 13.2 Distribution Width Platelet Count 179 Mean Platelet Volume 10.1 Immature 0.800 H Granulocytes % Neutrophils % 76.2 Lymphocytes % 14.3 L Monocytes % 7.7 Eosinophils % 0.8 Basophils % 0.2 Nucleated Red Blood 0.0 Cells % Immature 0.080 H Granulocytes # Neutrophils # 7.3 Lymphocytes # 1.4 Monocytes # 0.7 Eosinophils # 0.1 Basophils # 0.0 Nucleated Red Blood 0.0 Cells # Sodium Level 138 Potassium Level 4.0 Chloride Level 97 Carbon Dioxide Level 37 H Anion Gap 4 L Blood Urea Nitrogen 34 H Creatinine 0.97 Est Glomerular Filtrat Rate mL/min Glucose Level 143 Calcium Level 9.3 Phosphorus Level 5.3 H Magnesium Level 2.1 Creatine Kinase < 20 L Creatine Kinase Index Creatinine Kinase MB 2.29 (Mass) Troponin I 0.143 *H Bedside Glucose 186 Medications Current Medications Acetaminophen (Tylenol Tab) 650 mg Q6H PRN PO MILD PAIN(1-3)OR ELEVATED TEMP; Start 05/20/18 at 03:00 Insulin Aspart (Novolog Insulin Pen) NOVOLOG *MILD* ALGORITHM WITH MEALS BEDTIME SC Last administered on 05/22/18 09:10; Admin Dose 2 UNIT; Start 05/20/18 at 08:00 Amitriptyline HCl (Elavil) 25 mg HS PO Last administered on 05/21/18 21:56; Admin Dose 25 MG; Start 05/20/18 at 21:00 Budesonide (Pulmicort (Neb)) 0.5 mg BID RESP THERAPY HHN Last administered on 05/21/18 20:00; Admin Dose 0.5 MG; Start 05/20/18 at 09:00 Diltiazem HCl (Cardizem Iv) 10 mg Q6 PRN IV ELEVATED HEART RATE; Start 05/20/18 at 03:00 Famotidine (Pepcid) 20 mg BID PO Last administered on 05/22/18 08:56; Admin Do se 20 MG; Start 05/20/18 at 09:00 Albuterol/ Ipratropium (Duoneb) 3 ml Q4H RESP THERAPY PRN HHN SHORTNESS OF BREATH Last administered on 05/20/18 21:05; Admin Dose 3 ML; Start 05/20/18 at 03:00 Levothyroxine Sodium (Synthroid) 100 mcg DAILY@06 PO Last administered on 05/22/18 06:30; Admin Dose 100 MCG; Start 05/20/18 at 06:00 Lisinopril (Zestril) 2.5 mg DAILY PO Last administered on 05/22/18 08:55; Admin Dose 2.5 MG; Start 05/20/18 at 09:00 Methylprednisolone Sodium Succinate (Solu-Medrol) 40 mg DAILY IV Last administered on 05/22/18 08:56; Admin Dose 40 MG; Start 05/20/18 at 09:00 Miscellaneous Information 1 ea NOTE XX ; Start 05/20/18 at 03:00 Glucose (Glutose) 15 gm Q15M PRN PO DECREASED GLUCOSE; Start 05/20/18 at 03:00 Glucose (Glutose) 22.5 gm Q15M PRN PO DECREASED GLUCOSE; Start 05/20/18 at 03:00 Dextrose (D50w Syringe) 25 ml Q15M PRN IV DECREASED GLUCOSE; Start 05/20/18 at 03:00 Dextrose (D50w Syringe) 50 ml Q15M PRN IV DECREASED GLUCOSE; Start 05/20/18 at 03:00 Glucagon (Glucagen) 1 mg Q15M PRN IM DECREASED GLUCOSE; Start 05/20/18 at 03:00 Glucose (Glutose) 15 gm Q15M PRN BUCCAL DECREASED GLUCOSE; Start 05/20/18 at 03:00 Metoprolol Succinate (Toprol Xl) 12.5 mg BID PO Last administered on 05/22/18at 08:57; Admin Dose 12.5 MG; Start 05/20/18 at 21:00 Spironolactone (Aldactone) 12.5 mg DAILY PO Last administered on 05/22/18 08:55; Admin Dose 12.5 MG; Start 05/21/18 at 09:00 Furosemide (Lasix) 20 mg DAILY PO Last administered on 05/22/18 08:56; Admin Dose 20 MG; Start 05/21/18 at 09:00 Albuterol/ Ipratropium (Duoneb) 3 ml Q6H RESP THERAPY HHN Last administered on 05/22/18 09:25; Admin Dose 3 ML; Start 05/21/18 at 14:00 Enoxaparin Sodium (Lovenox) 40 mg DAILY SC Last administered on 05/22/18 09:10; Admin Dose 40 MG; Start 05/21/18 at 16:30 Aspirin (Aspirin) 81 mg DAILY PO Last administered on 05/22/18 08:56; Admin Dose 81 MG; Start 05/22/18 at 09:00 Assessment/Plan Hospital Course (Demo Recall) Assessment 1. Acute hypoxemic respiratory failure possibly secondary to acute bronchitis possible component of congestive cardiac failure 2. History of head and neck CA 3. History of hypothyroidism Plan 1. Continue decrease supplemental O2 as needed may need home O2 2. Pulmonary function testing 3. Outpatient 6-minute walk test. DC planning okay from pulmonary standpoint LANCE KOENIG MD, [facility] May 22, 2018 10:49
--- NOTE | 2018-05-22 16:38 | CONS ---
Assessment/Plan Assessment/Plan Assessment/Plan (Daily) Congestive heart failure, mitral valve, systolic, acute. Cardiomyopathy with EF 25% to 30% Hypertension Diabetes mellitus. Hypothyroidism. COPD Continue Lasix Continue Toprol Continue Lisinopril Continue ASA Continue Synthroid Continue Insulin Consultation Date/Type/Reason Admit Date/Time May 19, 2018 at 23:47 Type of Consult Cardiology Date/Time of Note DATE: 05/22/18 TIME: 16:36 Past Medical History Home Meds Reported Medications Amitriptyline Hcl* (Elavil*) 25 Mg Tab, 25 MG PO HS, #30 TAB 05/20/18 Levothyroxine Sodium* (Synthroid*) 100 Mcg Tablet, 100 MCG PO BEFORE BREAKFAST, #30 TAB 05/20/18 Medications Current Medications Acetaminophen (Tylenol Tab) 650 mg Q6H PRN PO MILD PAIN(1-3)OR ELEVATED TEMP; Start 05/20/18 at 03:00 Insulin Aspart (Novolog Insulin Pen) NOVOLOG *MILD* ALGORITHM WITH MEALS BEDTIME SC Last administered on 05/22/18at 12:04; Admin Dose 3 UNIT; Start 05/20/18 at 08:00 Amitriptyline HCl (Elavil) 25 mg HS PO Last administered on 05/21/18at 21:56; Admin Dose 25 MG; Start 05/20/18 at 21:00 Budesonide (Pulmicort (Neb)) 0.5 mg BID RESP THERAPY HHN Last administered on 05/22/18at 09:34; Admin Dose 0.5 MG; Start 05/20/18 at 09:00 Diltiazem HCl (Cardizem Iv) 10 mg Q6 PRN IV ELEVATED HEART RATE; Start 05/20/18 at 03:00 Famotidine (Pepcid) 20 mg BID PO Last administered on 05/22/18at 08:56; Admin Dose 20 MG; Start 05/20/18 at 09:00 Albuterol/ Ipratropium (Duoneb) 3 ml Q4H RESP THERAPY PRN HHN SHORTNESS OF BREATH Last administered on 05/20/18at 21:05; Admin Dose 3 ML; Start 05/20/18 at 03:00 Levothyroxine Sodium (Synthroid) 100 mcg DAILY@06 PO Last administered on 05/22/18at 06:30; Admin Dose 100 MCG; Start 05/20/18 at 06:00 Lisinopril (Zestril) 2.5 mg DAILY PO Last administered on 05/22/18at 08:55; Admin Dose 2.5 MG; Start 05/20/18 at 09:00 Methylprednisolone Sodium Succinate (Solu-Medrol) 40 mg DAILY IV Last administered on 05/22/18at 08:56; Admin Dose 40 MG; Start 05/20/18 at 09:00 Miscellaneous Information 1 ea NOTE XX ; Start 05/20/18 at 03:00 Glucose (Glutose) 15 gm Q15M PRN PO DECREASED GLUCOSE; Start 05/20/18 at 03:00 Glucose (Glutose) 22.5 gm Q15M PRN PO DECREASED GLUCOSE; Start 05/20/18 at 03:00 Dextrose (D50w Syringe) 25 ml Q15M PRN IV DECREASED GLUCOSE; Start 05/20/18 at 03:00 Dextrose (D50w Syringe) 50 ml Q15M PRN IV DECREASED GLUCOSE; Start 05/20/18 at 03:00 Glucagon (Glucagen) 1 mg Q15M PRN IM DECREASED GLUCOSE; Start 05/20/18 at 03:00 Glucose (Glutose) 15 gm Q15M PRN BUCCAL DECREASED GLUCOSE; Start 05/20/18 at 03:00 Metoprolol Succinate (Toprol Xl) 12.5 mg BID PO Last administered on 05/22/18at 08:57; Admin Dose 12.5 MG; Start 05/20/18 at 21:00 Spironolactone (Aldactone) 12.5 mg DAILY PO Last administered on 05/22/18at 08:55; Admin Dose 12.5 MG; Start 05/21/18 at 09:00 Furosemide (Lasix) 20 mg DAILY PO Last administered on 05/22/18 08:56; Admin Dose 20 MG; Start 05/21/18 at 09:00 Albuterol/ Ipratropium (Duoneb) 3 ml Q6H RESP THERAPY HHN Last administered on 05/22/18at 14:14; Admin Dose 3 ML; Start 05/21/18 at 14:00 Enoxaparin Sodium (Lovenox) 40 mg DAILY SC Last administered on 05/22/18at 09:10; Admin Dose 40 MG; Start 05/21/18 at 16:30 Aspirin (Aspirin) 81 mg DAILY PO Last administered on 05/22/18at 08:56; Admin Dose 81 MG; Start 05/22/18 at 09:00 Allergies: Coded Allergies: No Known Allergy (Unverified , 05/20/18) Social History Smoking Status: Former smoker Exam/Review of Systems Vital Signs Vitals Vital Signs Date Temp Pulse Resp B/P (MAP) Pulse Ox O2 O2 Flow FiO2 Time Delivery Rate 05/22/18 97.5 72 18 98/57 (71) 92 15:12 05/22/18 Nasal 2.0 14:15 Cannula Intake and Output 05/21/18 05/21/18 05/22/18 1515:00 23:00 07:00 IntakeIntake Total 1200 ml 350 ml OutputOutput Total 860 ml BalanceBalance 1200 ml -510 ml Exam Constitutional: alert Head: normocephalic, atraumatic Neck: supple, non-tender Respiratory: clear to auscultation Cardiovascular: regular rate and rhythm (no m/r/g) Gastrointestinal: soft, nl liver, spleen Extremities: normal pulses Labs Result Diagram: 05/22/18 0531 05/22/18 0531 Results 24hrs Laboratory Tests Test 05/21/18 17:06 05/21/18 21:53 05/22/18 02:35 05/22/18 05:31 Bedside Glucose 246 H 247 H 122 White Blood Count 9.6 Red Blood Count 4.58 Hemoglobin 14.1 Hematocrit 43.6 Mean Corpuscular 95.2 Volume Mean Corpuscular 30.8 Hemoglobin Mean Corpuscular 32.3 Hemoglobin Concent Red Cell 13.2 Distribution Width Platelet Count 179 Mean Platelet Volume 10.1 Immature 0.800 H Granulocytes % Neutrophils % 76.2 Lymphocytes % 14.3 L Monocytes % 7.7 Eosinophils % 0.8 Basophils % 0.2 Nucleated Red Blood 0.0 Cells % Immature 0.080 H Granulocytes # Neutrophils # 7.3 Lymphocytes # 1.4 Monocytes # 0.7 Eosinophils # 0.1 Basophils # 0.0 Nucleated Red Blood 0.0 Cells # Sodium Level 138 Potassium Level 4.0 Chloride Level 97 Carbon Dioxide Level 37 H Anion Gap 4 L Blood Urea Nitrogen 34 H Creatinine 0.97 Est Glomerular Filtrat Rate mL/min Glucose Level 143 Calcium Level 9.3 Phosphorus Level 5.3 H Magnesium Level 2.1 Creatine Kinase < 20 L Creatine Kinase Index Creatinine Kinase MB 2.29 (Mass) Troponin I 0.143 *H Test 05/22/18 08:46 05/22/18 11:54 Bedside Glucose 186 231 H Medications Medications Current Medications Acetaminophen (Tylenol Tab) 650 mg Q6H PRN PO MILD PAIN(1-3)OR ELEVATED TEMP; Start 05/20/18 at 03:00 Insulin Aspart (Novolog Insulin Pen) NOVOLOG *MILD* ALGORITHM WITH MEALS BEDTIME SC Last administered on 05/22/18 12:04; Admin Dose 3 UNIT; Start 05/20/18 at 08:00 Amitriptyline HCl (Elavil) 25 mg HS PO Last administered on 05/21/18 21:56; Admin Dose 25 MG; Start 05/20/18 at 21:00 Budesonide (Pulmicort (Neb)) 0.5 mg BID RESP THERAPY HHN Last administered on 05/22/18 09:34; Admin Dose 0.5 MG; Start 05/20/18 at 09:00 Diltiazem HCl (Cardizem Iv) 10 mg Q6 PRN IV ELEVATED HEART RATE; Start 05/20/18 at 03:00 Famotidine (Pepcid) 20 mg BID PO Last administered on 05/22/18 08:56; Admin Dose 20 MG; Start 05/20/18 at 09:00 Albuterol/ Ipratropium (Duoneb) 3 ml Q4H RESP THERAPY PRN HHN SHORTNESS OF BREATH Last administered on 05/20/18 21:05; Admin Dose 3 ML; Start 05/20/18 at 03:00 Levothyroxine Sodium (Synthroid) 100 mcg DAILY@06 PO Last administered on 05/22/18 06:30; Admin Dose 100 MCG; Start 05/20/18 at 06:00 Lisinopril (Zestril) 2.5 mg DAILY PO Last administered on 05/22/18 08:55; Admin Dose 2.5 MG; Start 05/20/18 at 09:00 Methylprednisolone Sodium Succinate (Solu-Medrol) 40 mg DAILY IV Last administered on 05/22/18 08:56; Admin Dose 40 MG; Start 05/20/18 at 09:00 Miscellaneous Information 1 ea NOTE XX ; Start 05/20/18 at 03:00 Glucose (Glutose) 15 gm Q15M PRN PO DECREASED GLUCOSE; Start 05/20/18 at 03:00 Glucose (Glutose) 22.5 gm Q15M PRN PO DECREASED GLUCOSE; Start 05/20/18 at 03:0 0 Dextrose (D50w Syringe) 25 ml Q15M PRN IV DECREASED GLUCOSE; Start 05/20/18 at 03:00 Dextrose (D50w Syringe) 50 ml Q15M PRN IV DECREASED GLUCOSE; Start 05/20/18 at 03:00 Glucagon (Glucagen) 1 mg Q15M PRN IM DECREASED GLUCOSE; Start 05/20/18 at 03:00 Glucose (Glutose) 15 gm Q15M PRN BUCCAL DECREASED GLUCOSE; Start 05/20/18 at 03:00 Metoprolol Succinate (Toprol Xl) 12.5 mg BID PO Last administered on 05/22/18 08:57; Admin Dose 12.5 MG; Start 05/20/18 at 21:00 Spironolactone (Aldactone) 12.5 mg DAILY PO Last administered on 05/22/18 08:55; Admin Dose 12.5 MG; Start 05/21/18 at 09:00 Furosemide (Lasix) 20 mg DAILY PO Last administered on 05/22/18 08:56; Admin Dose 20 MG; Start 05/21/18 at 09:00 Albuterol/ Ipratropium (Duoneb) 3 ml Q6H RESP THERAPY HHN Last administered on 05/22/18 14:14; Admin Dose 3 ML; Start 05/21/18 at 14:00 Enoxaparin Sodium (Lovenox) 40 mg DAILY SC Last administered on 05/22/18 09:10; Admin Dose 40 MG; Start 05/21/18 at 16:30 Aspirin (Aspirin) 81 mg DAILY PO Last administered on 05/22/18 08:56; Admin Dose 81 MG; Start 05/22/18 at 09:00 MANUELA EARLY M.D. May 22, 2018 16:38
--- NOTE | 2018-05-22 19:36 | PN ---
Date/Time of Note Date/Time of Note DATE: 05/22/18 TIME: 19:33 Assessment/Plan VTE Prophylaxis Risk score (from Ns)>0 risk: 4 SCD applied (from Ns): Yes Pharmacological prophylaxis: LMWH Lines/Catheters IV [facility] Saline Lock Assessment/Plan Hospital Course 1. Shortness of breath secondary to chronic obstructive pulmonary disease/congestive heart failure exacerbation. 2. Nonischemic cardiomyopathy. 3. Cardiomyopathy with ejection fraction of 25% to 30%. 4. likely underlying COPD. With chronic type II respiratory failure. 5. History of nonsustained ventricular tachycardia. 6. Hypertension. 7. Hypothyroidism. 8. Overweight. 9. History of chronic smoking. Assessment/Plan -Continue with aspirin /statin/ beta-robbi -cw gentle Lasix/spironolactone -IV Diamox for metabolic alkalosis -cw with lisinopril 2.5 -Troponin elevated. However angiogram at [facility] was normal will get official cath reports -DuoNeb/Solu-Medrol -fu up with the cardiology/pul Raj gi prophylaxis Famotidine -DVT prophylaxis Lovenox 40 mg po daily Result Diagram: 05/22/1831 05/22/1831 Results 24hrs Laboratory Tests Test 05/21/18 21:53 05/22/18 02:35 05/22/18 05:31 05/22/18 08:46 Bedside Glucose 247 H 122 186 White Blood Count 9.6 Red Blood Count 4.58 Hemoglobin 14.1 Hematocrit 43.6 Mean Corpuscular 95.2 Volume Mean Corpuscular 30.8 Hemoglobin Mean Corpuscular 32.3 Hemoglobin Concent Red Cell 13.2 Distribution Width Platelet Count 179 Mean Platelet Volume 10.1 Immature 0.800 H Granulocytes % Neutrophils % 76.2 Lymphocytes % 14.3 L Monocytes % 7.7 Eosinophils % 0.8 Basophils % 0.2 Nucleated Red Blood 0.0 Cells % Immature 0.080 H Granulocytes # Neutrophils # 7.3 Lymphocytes # 1.4 Monocytes # 0.7 Eosinophils # 0.1 Basophils # 0.0 Nucleated Red Blood 0.0 Cells # Sodium Level 138 Potassium Level 4.0 Chloride Level 97 Carbon Dioxide Level 37 H Anion Gap 4 L Blood Urea Nitrogen 34 H Creatinine 0.97 Est Glomerular Filtrat Rate mL/min Glucose Level 143 Calcium Level 9.3 Phosphorus Level 5.3 H Magnesium Level 2.1 Creatine Kinase < 20 L Creatine Kinase Index Creatinine Kinase MB 2.29 (Mass) Troponin I 0.143 *H Test 05/22/18 11:54 05/22/18 17:07 Bedside Glucose 231 H 236 H Subjective 24 Hr Interval Summary Respiratory: shortness of breath Exam/Review of Systems Exam Vitals Vital Signs Date Temp Pulse Resp B/P (MAP) Pulse Ox O2 O2 Flow FiO2 Time Delivery Rate 05/22/18 98.1 64 17 121/62 93 19:30 (81) 05/22/18 Nasal 2.0 14:15 Cannula Intake and Output 05/21/18 05/21/18 05/22/18 1515:00 23:00 07:00 IntakeIntake Total 1200 ml 350 ml OutputOutput Total 860 ml BalanceBalance 1200 ml -510 ml Constitutional: alert, oriented Respiratory: diminished breath sounds, wheezing Cardiovascular: irregular rhythm Gastrointestinal: soft Genitourinary - Female: nl adnexae Results Results 24hrs Laboratory Tests Test 05/21/18 21:53 05/22/18 02:35 05/22/18 05:31 05/22/18 08:46 Bedside Glucose 247 H 122 186 White Blood Count 9.6 Red Blood Count 4.58 Hemoglobin 14.1 Hematocrit 43.6 Mean Corpuscular 95.2 Volume Mean Corpuscular 30.8 Hemoglobin Mean Corpuscular 32.3 Hemoglobin Concent Red Cell 13.2 Distribution Width Platelet Count 179 Mean Platelet Volume 10.1 Immature 0.800 H Granulocytes % Neutrophils % 76.2 Lymphocytes % 14.3 L Monocytes % 7.7 Eosinophils % 0.8 Basophils % 0.2 Nucleated Red Blood 0.0 Cells % Immature 0.080 H Granulocytes # Neutrophils # 7.3 Lymphocytes # 1.4 Monocytes # 0.7 Eosinophils # 0.1 Basophils # 0.0 Nucleated Red Blood 0.0 Cells # Sodium Level 138 Potassium Level 4.0 Chloride Level 97 Carbon Dioxide Level 37 H Anion Gap 4 L Blood Urea Nitrogen 34 H Creatinine 0.97 Est Glomerular Filtrat Rate mL/min Glucose Level 143 Calcium Level 9.3 Phosphorus Level 5.3 H Magnesium Level 2.1 Creatine Kinase < 20 L Creatine Kinase Index Creatinine Kinase MB 2.29 (Mass) Troponin I 0.143 *H Test 05/22/18 11:54 05/22/18 17:07 Bedside Glucose 231 H 236 H Medications Medication Current Medications Acetaminophen (Tylenol Tab) 650 mg Q6H PRN PO MILD PAIN(1-3)OR ELEVATED TEMP; Start 05/20/18 at 03:00 Insulin Aspart (Novolog Insulin Pen) NOVOLOG *MILD* ALGORITHM WITH MEALS BEDTIME SC Last administered on 05/22/18 17:10; Admin Dose 3 UNIT; Start 05/20/18 at 08:00 Amitriptyline HCl (Elavil) 25 mg HS PO Last administered on 05/21/18 21:56; Admin Dose 25 MG; Start 05/20/18 at 21:00 Budesonide (Pulmicort (Neb)) 0.5 mg BID RESP THERAPY HHN Last administered on 05/22/18 09:34; Admin Dose 0.5 MG; Start 05/20/18 at 09:00 Diltiazem HCl (Cardizem Iv) 10 mg Q6 PRN IV ELEVATED HEART RATE; Start 05/20/18 at 03:00 Famotidine (Pepcid) 20 mg BID PO Last administered on 05/22/18 08:56; Admin Dose 20 MG; Start 05/20/18 at 09:00 Albuterol/ Ipratropium (Duoneb) 3 ml Q4H RESP THERAPY PRN HHN SHORTNESS OF CECILIA ATH Last administered on 05/20/18 21:05; Admin Dose 3 ML; Start 05/20/18 at 03:00 Levothyroxine Sodium (Synthroid) 100 mcg DAILY@06 PO Last administered on 05/22/18 06:30; Admin Dose 100 MCG; Start 05/20/18 at 06:00 Lisinopril (Zestril) 2.5 mg DAILY PO Last administered on 05/22/18 08:55; Admin Dose 2.5 MG; Start 05/20/18 at 09:00 Methylprednisolone Sodium Succinate (Solu-Medrol) 40 mg DAILY IV Last administered on 05/22/18 08:56; Admin Dose 40 MG; Start 05/20/18 at 09:00 Miscellaneous Information 1 ea NOTE XX ; Start 05/20/18 at 03:00 Glucose (Glutose) 15 gm Q15M PRN PO DECREASED GLUCOSE; Start 05/20/18 at 03:00 Glucose (Glutose) 22.5 gm Q15M PRN PO DECREASED GLUCOSE; Start 05/20/18 at 03:00 Dextrose (D50w Syringe) 25 ml Q15M PRN IV DECREASED GLUCOSE; Start 05/20/18 at 03:00 Dextrose (D50w Syringe) 50 ml Q15M PRN IV DECREASED GLUCOSE; Start 05/20/18 at 03:00 Glucagon (Glucagen) 1 mg Q15M PRN IM DECREASED GLUCOSE; Start 05/20/18 at 03:00 Glucose (Glutose) 15 gm Q15M PRN BUCCAL DECREASED GLUCOSE; Start 05/20/18 at 03:00 Metoprolol Succinate (Toprol Xl) 12.5 mg BID PO Last administered on 05/22/18 08:57; Admin Dose 12.5 MG; Start 05/20/18 at 21:00 Spironolactone (Aldactone) 12.5 mg DAILY PO Last administered on 05/22/18 08:55; Admin Dose 12.5 MG; Start 05/21/18 at 09:00 Furosemide (Lasix) 20 mg DAILY PO Last administered on 05/22/18 08:56; Admin Dose 20 MG; Start 05/21/18 at 09:00 Albuterol/ Ipratropium (Duoneb) 3 ml Q6H RESP THERAPY HHN Last administered on 05/22/18 14:14; Admin Dose 3 ML; Start 05/21/18 at 14:00 Enoxaparin Sodium (Lovenox) 40 mg DAILY SC Last administered on 05/22/18 09:10; Admin Dose 40 MG; Start 05/21/18 at 16:30 Aspirin (Aspirin) 81 mg DAILY PO Last administered on 05/22/18 08:56; Admin Dose 81 MG; Start 05/22/18 at 09:00 ALESSANDRO MARRERO May 22, 2018 19:36
[2018-05-22] MEDS: AMITRIPTYLINE 25 MG TAB PO SCH (20:25)
[2018-05-23] VITALS (14 sets, daily range): BP systolic 93–101; BP diastolic 52–67; PULSE 50–71; RESP 18–20
[2018-05-23] MEDS: ALBUTEROL/IPRATROPIUM (NEB) 3 ML AMP HHN SCH ×4 (04:00→21:13)
[2018-05-23] MEDS: LEVOTHYROXINE 100 MCG TAB PO SCH (06:05)
[2018-05-23] MEDS: METHYLPREDNISOLONE 40 MG INJ IV SCH (08:02)
[2018-05-23] MEDS: FUROSEMIDE 20 MG TAB PO SCH (08:05)
[2018-05-23] MEDS: LISINOPRIL 5 MG TAB PO SCH (08:06)
[2018-05-23] MEDS: SPIRONOLACTONE 25 MG TAB PO SCH (08:06)
[2018-05-23] MEDS: FAMOTIDINE 20 MG TAB PO SCH ×2 (08:06→21:58)
[2018-05-23] MEDS: ASPIRIN 81 MG TAB PO SCH (08:07)
[2018-05-23] MEDS: METOPROLOL (XL) 25 MG TAB PO SCH ×2 (08:07→21:00)
[2018-05-23] MEDS: ENOXAPARIN 40 MG/0.4 ML SYG SC SCH (08:12)
[2018-05-23] MEDS: INSULIN ASPART [NOVOLOG] 3 ML PEN SC SCH ×4 (08:12→21:00)
[2018-05-23] MEDS: BUDESONIDE (NEB) 0.5MG/2ML AMP HHN SCH ×2 (09:32→21:14)
--- NOTE | 2018-05-23 12:03 | CONS ---
Consult Date/Type/Reason Admit Date/Time May 19, 2018 at 23:47 Initial Consult Date 05/21/18 Type of Consult Pulmonary Requesting Provider: GLADYS CASIANO MD Date/Time of Note DATE: 05/23/18 TIME: 12:02 Subjective Patient comfortable at rest no respiratory distress. Slowly improving. Objective Vital Signs Date Temp Pulse Resp B/P (MAP) Pulse Ox O2 O2 Flow FiO2 Time Delivery Rate 05/23/18 97.2 65 18 98/52 (67) 95 11:21 05/23/18 Nasal 3.0 09:41 Cannula 05/22/18 30 21:07 Intake and Output 05/22/18 05/22/18 05/23/18 1515:00 23:00 07:00 IntakeIntake Total 200 ml BalanceBalance 200 ml Exam GENERAL: Elderly lady comfortable at rest talking in full complete sentences VITAL SIGNS: per chart NECK: Supple. No JVD or lymphadenopathy. CARDIAC EXAM: S1, S2. No added sounds or murmurs. CHEST: clear bilaterally, No added sounds, rales or wheezes ABDOMEN: Soft, nontender. No guarding or rebound. EXTREMITIES: No cyanosis, clubbing or edema. NEUROLOGIC: Generalized weakness. No focal deficits. Vent Setting Fraction of Inspired Oxygen pe: 30 Results/Medications Result Diagram: 05/22/1831 05/22/18530 Results 24 hrs Laboratory Tests Test 05/22/18 17:07 05/22/18 20:28 05/23/18 02:59 05/23/18 08:00 Bedside Glucose 236 H 182 141 146 Test 05/23/18 11:45 Bedside Glucose 136 Medications Current Medications Acetaminophen (Tylenol Tab) 650 mg Q6H PRN PO MILD PAIN(1-3)OR ELEVATED TEMP; Start 05/20/18 at 03:00 Insulin Aspart (Novolog Insulin Pen) NOVOLOG *MILD* ALGORITHM WITH MEALS BEDTIME SC Last administered on 05/23/18at 08:12; Admin Dose 1 UNIT; Start 05/20/18 at 08:00 Amitriptyline HCl (Elavil) 25 mg HS PO Last administered on 05/22/18at 20:25; Admin Dose 25 MG; Start 05/20/18 at 21:00 Budesonide (Pulmicort (Neb)) 0.5 mg BID RESP THERAPY HHN Last administered on 05/23/18at 09:32; Admin Dose 0.5 MG; Start 05/20/18 at 09:00 Diltiazem HCl (Cardizem Iv) 10 mg Q6 PRN IV ELEVATED HEART RATE; Start 05/20/18 at 03:00 Famotidine (Pepcid) 20 mg BID PO Last administered on 05/23/18at 08:06; Admin Dose 20 MG; Start 05/20/18 at 09:00 Albuterol/ Ipratropium (Duoneb) 3 ml Q4H RESP THERAPY PRN HHN SHORTNESS OF BREATH Last administered on 05/20/18at 21:05; Admin Dose 3 ML; Start 05/20/18 at 03:00 Levothyroxine Sodium (Synthroid) 100 mcg DAILY@06 PO Last administered on 05/23/18at 06:05; Admin Dose 100 MCG; Start 05/20/18 at 06:00 Lisinopril (Zestril) 2.5 mg DAILY PO Last administered on 05/23/18at 08:06; Admin Dose 2.5 MG; Start 05/20/18 at 09:00 Methylprednisolone Sodium Succinate (Solu-Medrol) 40 mg DAILY IV Last administered on 05/23/18at 08:02; Admin Dose 40 MG; Start 05/20/18 at 09:00 Miscellaneous Information 1 ea NOTE XX ; Start 05/20/18 at 03:00 Glucose (Glutose) 15 gm Q15M PRN PO DECREASED GLUCOSE; Start 05/20/18 at 03:00 Glucose (Glutose) 22.5 gm Q15M PRN PO DECREASED GLUCOSE; Start 05/20/18 at 03:00 Dextrose (D50w Syringe) 25 ml Q15M PRN IV DECREASED GLUCOSE; Start 05/20/18 at 03:00 Dextrose (D50w Syringe) 50 ml Q15M PRN IV DECREASED GLUCOSE; Start 05/20/18 at 03:00 Glucagon (Glucagen) 1 mg Q15M PRN IM DECREASED GLUCOSE; Start 05/20/18 at 03:00 Glucose (Glutose) 15 gm Q15M PRN BUCCAL DECREASED GLUCOSE; Start 05/20/18 at 03:00 Metoprolol Succinate (Toprol Xl) 12.5 mg BID PO Last administered on 05/23/18at 08:07; Admin Dose 12.5 MG; Start 05/20/18 at 21:00 Spironolactone (Aldactone) 12.5 mg DAILY PO Last administered on 05/23/18 08:06; Admin Dose 12.5 MG; Start 05/21/18 at 09:00 Furosemide (Lasix) 20 mg DAILY PO Last administered on 05/23/18 08:05; Admin Dose 20 MG; Start 05/21/18 at 09:00 Albuterol/ Ipratropium (Duoneb) 3 ml Q6H RESP THERAPY HHN Last administered on 05/23/18 09:32; Admin Dose 3 ML; Start 05/21/18 at 14:00 Enoxaparin Sodium (Lovenox) 40 mg DAILY SC Last administered on 05/23/18 08:12; Admin Dose 40 MG; Start 05/21/18 at 16:30 Aspirin (Aspirin) 81 mg DAILY PO Last administered on 05/23/18 08:07; Admin Dose 81 MG; Start 05/22/18 at 09:00 Assessment/Plan Hospital Course (Demo Recall) Assessment 1. Acute hypoxemic respiratory failure possibly secondary to acute bronchitis possible component of congestive cardiac failure 2. History of head and neck CA 3. History of hypothyroidism Plan 1. Continue decrease supplemental O2 as needed may need home O2 2. Pulmonary function testing 3. Outpatient 6-minute walk test. DC planning okay from pulmonary standpoint LANCE KOENIG MD, [facility] May 23, 2018 12:03
--- NOTE | 2018-05-23 13:06 | PN ---
Date/Time of Note Date/Time of Note DATE: 05/23/18 TIME: 13:06 Assessment/Plan VTE Prophylaxis Risk score (from Ns)>0 risk: 3 SCD applied (from Nsg): Yes Pharmacological prophylaxis: LMWH Lines/Catheters IV Catheter Type (from Nrs): Saline Lock Assessment/Plan Hospital Course 1. Shortness of breath secondary to chronic obstructive pulmonary disease/congestive heart failure exacerbation. 2. Nonischemic cardiomyopathy. 3. Cardiomyopathy with ejection fraction of 25% to 30%. 4. likely underlying COPD. With chronic type II respiratory failure. 5. History of nonsustained ventricular tachycardia. 6. Hypertension. 7. Hypothyroidism. 8. Overweight. 9. History of chronic smoking. Assessment/Plan -Continue with aspirin /statin/ beta-robbi -cw gentle Lasix/spironolactone -cw with lisinopril 2.5 -condition improved -DuoNeb/Solu-Medrol -f/up with the cardiology/pul Rec. 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 daily Result Diagram: 05/22/18 0531 05/22/18 0531 Results 24hrs Laboratory Tests Test 05/22/18 17:07 05/22/18 20:28 05/23/18 02:59 05/23/18 08:00 Bedside Glucose 236 H 182 141 146 Test 05/23/18 11:45 Bedside Glucose 136 Subjective 24 Hr Interval Summary Respiratory: shortness of breath Exam/Review of Systems Exam Vitals Vital Signs Date Temp Pulse Resp B/P (MAP) Pulse Ox O2 O2 Flow FiO2 Time Delivery Rate 05/23/18 71 12:00 05/23/18 97.2 18 98/52 (67) 95 11:21 05/23/18 Nasal 3.0 09:41 Cannula 05/22/18 30 21:07 Intake and Output 05/22/18 05/22/18 05/23/18 1515:00 23:00 07:00 IntakeIntake Total 200 ml BalanceBalance 200 ml Exam on 3 l nasal cannula Constitutional: alert, oriented ENMT: nl external ears & nose Respiratory: diminished breath sounds, wheezing; No clear to auscultation, No normal air movement, No congested cough, No crackles/rales, No intercostal retraction, No labored breathing, No respirations, No tactile fremitus, No other Cardiovascular: regular rate and rhythm Gastrointestinal: soft Results Results 24hrs Laboratory Tests Test 05/22/18 17:07 05/22/18 20:28 05/23/18 02:59 05/23/18 08:00 Bedside Glucose 236 H 182 141 146 Test 05/23/18 11:45 Bedside Glucose 136 Medications Medication Current Medications Acetaminophen (Tylenol Tab) 650 mg Q6H PRN PO MILD PAIN(1-3)OR ELEVATED TEMP; Start 05/20/18 at 03:00 Insulin Aspart (Novolog Insulin Pen) NOVOLOG *MILD* ALGORITHM WITH MEALS BEDTIME SC Last administered on 05/23/18 08:12; Admin Dose 1 UNIT; Start 05/20/18 at 08:00 Amitriptyline HCl (Elavil) 25 mg HS PO Last administered on 05/22/18 20:25; Admin Dose 25 MG; Start 05/20/18 at 21:00 Budesonide (Pulmicort (Neb)) 0.5 mg BID RESP THERAPY HHN Last administered on 05/23/18 09:32; Admin Dose 0.5 MG; Start 05/20/18 at 09:00 Diltiazem HCl (Cardizem Iv) 10 mg Q6 PRN IV ELEVATED HEART RATE; Start 05/20/18 at 03:00 Famotidine (Pepcid) 20 mg BID PO Last administered on 05/23/18 08:06; Admin Dose 20 MG; Start 05/20/18 at 09:00 Albuterol/ Ipratropium (Duoneb) 3 ml Q4H RESP THERAPY PRN HHN SHORTNESS OF BREATH Last administered on 05/20/18 21:05; Admin Dose 3 ML; Start 05/20/18 at 03:00 Levothyroxine Sodium (Synthroid) 100 mcg DAILY@06 PO Last administered on 05/23/18 06:05; Admin Dose 100 MCG; Start 05/20/18 at 06:00 Lisinopril (Zestril) 2.5 mg DAILY PO Last administered on 05/23/18 08:06; Admin Dose 2.5 MG; Start 05/20/18 at 09:00 Methylprednisolone Sodium Succinate (Solu-Medrol) 40 mg DAILY IV Last administered on 05/23/18 08:02; Admin Dose 40 MG; Start 05/20/18 at 09:00 Miscellaneous Information 1 ea NOTE XX ; Start 05/20/18 at 03:00 Glucose (Glutose) 15 gm Q15M PRN PO DECREASED GLUCOSE; Start 05/20/18 at 03:00 Glucose (Glutose) 22.5 gm Q15M PRN PO DECREASED GLUCOSE; Start 05/20/18 at 03:00 Dextrose (D50w Syringe) 25 ml Q15M PRN IV DECREASED GLUCOSE; Start 05/20/18 at 03:00 Dextrose (D50w Syringe) 50 ml Q15M PRN IV DECREASED GLUCOSE; Start 05/20/18 at 03:00 Glucagon (Glucagen) 1 mg Q15M PRN IM DECREASED GLUCOSE; Start 05/20/18 at 03:00 Glucose (Glutose) 15 gm Q15M PRN BUCCAL DECREASED GLUCOSE; Start 05/20/18 at 03:00 Metoprolol Succinate (Toprol Xl) 12.5 mg BID PO Last administered on 05/23/18 08:07; Admin Dose 12.5 MG; Start 05/20/18 at 21:00 Spironolactone (Aldactone) 12.5 mg DAILY PO Last administered on 05/23/18 08:06; Admin Dose 12.5 MG; Start 05/21/18 at 09:00 Furosemide (Lasix) 20 mg DAILY PO Last administered on 05/23/18 08:05; Admin Dose 20 MG; Start 05/21/18 at 09:00 Albuterol/ Ipratropium (Duoneb) 3 ml Q6H RESP THERAPY HHN Last administered on 05/23/18 09:32; Admin Dose 3 ML; Start 05/21/18 at 14:00 Enoxaparin Sodium (Lovenox) 40 mg DAILY SC Last administered on 05/23/18 08:12; Admin Dose 40 MG; Start 05/21/18 at 16:30 Aspirin (Aspirin) 81 mg DAILY PO Last administered on 05/23/18 08:07; Admin Dose 81 MG; Start 05/22/18 at 09:00 ALESSANDRO MARRERO May 23, 2018 13:06
--- NOTE | 2018-05-23 14:16 | CONS ---
Assessment/Plan Assessment/Plan Assessment/Plan (Daily) Congestive heart failure, mitral valve, systolic, acute. Cardiomyopathy with EF 25% to 30% Hypertension Diabetes mellitus. Hypothyroidism. COPD Cardiac cath at [facility] shows non obstructive CAD consistent with NICM Continue Lasix Continue Toprol Continue Lisinopril Continue ASA Continue Synthroid Continue Insulin Consultation Date/Type/Reason Admit Date/Time May 19, 2018 at 23:47 Initial Consult Date 05/21/18 Type of Consult Cardiology Requesting Provider: GLADYS CASIANO MD Date/Time of Note DATE: 05/23/18 TIME: 14:14 Exam/Review of Systems Vital Signs Vitals Vital Signs Date Temp Pulse Resp B/P (MAP) Pulse Ox O2 O2 Flow FiO2 Time Delivery Rate 05/23/18 79 16 96 Nasal 3.0 14:13 Cannula 05/23/18 97.2 98/52 (67) 11:21 05/22/18 30 21:07 Intake and Output 05/22/18 05/22/18 05/23/18 1515:00 23:00 07:00 IntakeIntake Total 200 ml BalanceBalance 200 ml Exam Constitutional: alert Head: normocephalic Respiratory: clear to auscultation Cardiovascular: regular rate and rhythm (no m/r/g) Gastrointestinal: soft, nl liver, spleen Extremities: normal pulses Labs Result Diagram: 05/22/1853005/22/18530 Results 24hrs Laboratory Tests Test 05/22/18 17:07 05/22/18 20:28 05/23/18 02:59 05/23/18 08:00 Bedside Glucose 236 H 182 141 146 Test 05/23/18 11:45 Bedside Glucose 136 Medications Medications Current Medications Acetaminophen (Tylenol Tab) 650 mg Q6H PRN PO MILD PAIN(1-3)OR ELEVATED TEMP; Start 05/20/18 at 03:00 Insulin Aspart (Novolog Insulin Pen) NOVOLOG *MILD* ALGORITHM WITH MEALS BEDTIME SC Last administered on 05/23/18at 08:12; Admin Dose 1 UNIT; Start 05/20/18 at 08:00 Amitriptyline HCl (Elavil) 25 mg HS PO Last administered on 05/22/18at 20:25; Admin Dose 25 MG; Start 05/20/18 at 21:00 Budesonide (Pulmicort (Neb)) 0.5 mg BID RESP THERAPY HHN Last administered on 05/23/18at 09:32; Admin Dose 0.5 MG; Start 05/20/18 at 09:00 Diltiazem HCl (Cardizem Iv) 10 mg Q6 PRN IV ELEVATED HEART RATE; Start 05/20/18 at 03:00 Famotidine (Pepcid) 20 mg BID PO Last administered on 05/23/18at 08:06; Admin Dose 20 MG; Start 05/20/18 at 09:00 Albuterol/ Ipratropium (Duoneb) 3 ml Q4H RESP THERAPY PRN HHN SHORTNESS OF BREATH Last administered on 05/20/18at 21:05; Admin Dose 3 ML; Start 05/20/18 at 03:00 Levothyroxine Sodium (Synthroid) 100 mcg DAILY@06 PO Last administered on 05/23/18at 06:05; Admin Dose 100 MCG; Start 05/20/18 at 06:00 Lisinopril (Zestril) 2.5 mg DAILY PO Last administered on 05/23/18at 08:06; Admin Dose 2.5 MG; Start 05/20/18 at 09:00 Methylprednisolone Sodium Succinate (Solu-Medrol) 40 mg DAILY IV Last administered on 05/23/18at 08:02; Admin Dose 40 MG; Start 05/20/18 at 09:00 Miscellaneous Information 1 ea NOTE XX ; Start 05/20/18 at 03:00 Glucose (Glutose) 15 gm Q15M PRN PO DECREASED GLUCOSE; Start 05/20/18 at 03:00 Glucose (Glutose) 22.5 gm Q15M PRN PO DECREASED GLUCOSE; Start 05/20/18 at 03:00 Dextrose (D50w Syringe) 25 ml Q15M PRN IV DECREASED GLUCOSE; Start 05/20/18 at 03:00 Dextrose (D50w Syringe) 50 ml Q15M PRN IV DECREASED GLUCOSE; Start 05/20/18 at 03:00 Glucagon (Glucagen) 1 mg Q15M PRN IM DECREASED GLUCOSE; Start 05/20/18 at 03:00 Glucose (Glutose) 15 gm Q15M PRN BUCCAL DECREASED GLUCOSE; Start 05/20/18 at 03:00 Metoprolol Succinate (Toprol Xl) 12.5 mg BID PO Last administered on 05/23/18at 08:07; Admin Dose 12.5 MG; Start 05/20/18 at 21:00 Spironolactone (Aldactone) 12.5 mg DAILY PO Last administered on 05/23/18 08:06; Admin Dose 12.5 MG; Start 05/21/18 at 09:00 Furosemide (Lasix) 20 mg DAILY PO Last administered on 05/23/18 08:05; Admin Dose 20 MG; Start 05/21/18 at 09:00 Albuterol/ Ipratropium (Duoneb) 3 ml Q6H RESP THERAPY HHN Last administered on 05/23/18 14:12; Admin Dose 3 ML; Start 05/21/18 at 14:00 Enoxaparin Sodium (Lovenox) 40 mg DAILY SC Last administered on 05/23/18 08:12; Admin Dose 40 MG; Start 05/21/18 at 16:30 Aspirin (Aspirin) 81 mg DAILY PO Last administered on 05/23/18 08:07; Admin Dose 81 MG; Start 05/22/18 at 09:00 MANUELA EARLY M.D. May 23, 2018 14:16
[2018-05-23] MEDS: AMITRIPTYLINE 25 MG TAB PO SCH (21:58)
[2018-05-24] VITALS (15 sets, daily range): BP systolic 98–118; BP diastolic 56–74; PULSE 55–83; RESP 2–20
[2018-05-24] MEDS: ALBUTEROL/IPRATROPIUM (NEB) 3 ML AMP HHN SCH ×4 (01:27→22:11)
[2018-05-24] MEDS: LEVOTHYROXINE 100 MCG TAB PO SCH (05:51)
[2018-05-24] MEDS: INSULIN ASPART [NOVOLOG] 3 ML PEN SC SCH ×4 (07:49→22:09)
--- NOTE | 2018-05-24 09:31 | CONS ---
Assessment/Plan Assessment/Plan Assessment/Plan (Daily) Assessment recommendations; 1. Patient admitted with COPD exacerbation with some element of CHF with likely chronic type II respiratory failure clinically improving. 2. History of head and neck cancer. Continue current supportive care. Will obtain follow-up ABG. The patient has persistent hypercapnia then she would qualify for a positive noninvasive positive pressure ventilator for home use. Consultation Date/Type/Reason Admit Date/Time May 19, 2018 at 23:47 Initial Consult Date 05/21/18 Type of Consult Pulmonary Patient is a 72-year-old lady who came into the hospital with a 2-day history of coughing with some shortness of breath. Upon evaluation a chest x-ray was done which is showing mild cardiomegaly, ABG also was done which is showing hypoxemic and hypercapnic respiratory failure which is partly compensated. By the time I saw the patient in the room, patient feeling much better and denies any further shortness of breath, also denies any nocturnal symptoms of shortness of breath at home, any daytime sleepiness or fatigue. According to her she is in generally good health at home. She denies any recent high fever, body aches or myalgias. Past medical history; 1 history of head and neck cancer, status post extensive right neck resection several years ago. 2. History of hypertension 3. Possibly COPD with chronic type II respiratory failure. 4. History of hypothyroidism. Medications; reviewed. Allergies; none. Social history; patient has an extensive smoking history. Family history; patient lives with her daughter at home. No history of any malignancy in the family. 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 Review of systems; denies any headache, seizures, visual changes. Any sinus symptoms. Denies any dysphagia. Shortness of breath has improved significantly since admission. Complains of very minimal cough, denies any wheezing, sputum production hemoptysis. Denies any abdominal pain, nausea vomiting. Any fever or chills. Any body aches or myalgias. Any orthopnea. Any snoring, daytime sleepiness or fatigue. General exam; elderly lady, awake alert, currently in no distress. On 2 L nasal cannula. Requesting Provider: GLADYS CASIANO MD Date/Time of Note DATE: 05/24/18 TIME: 09:29 24 HR Interval Summary Free Text/Dictation Patient's condition is stable. Remains awake and alert. Denies any shortness of breath, coughing, wheezing. General exam; elderly lady, awake alert, currently no distress. Exam/Review of Systems Exam Vitals Vital Signs Date Temp Pulse Resp B/P (MAP) Pulse Ox O2 O2 Flow FiO2 Time Delivery Rate 05/24/18 83 08:01 05/24/18 98.5 20 118/74 99 07:43 (89) 05/24/18 30 04:00 05/23/18 Nasal 3.0 21:10 Cannula Intake and Output 05/23/18 05/23/18 05/24/18 1515:00 23:00 07:00 IntakeIntake Total 1200 ml 200 ml BalanceBalance 1200 ml 200 ml Exam HEENT exam; supple neck, no JVD. No lymphadenopathy. Midline trachea. No thyromegaly. Surgical changes involving the right neck. Patient has a few remaining carious teeth. Chest exam; diminished but clear breath sounds. S1-S2, audible, no murmurs. Regular rhythm. Abdomen exam; soft, no organomegaly. Bowel sounds are audible. Extremity exam; no peripheral edema or clubbing. ANALYTICAL STATISTICIAN exam; no focal deficit. Results Result Diagram: 05/22/1853005/22/18530 Results 24hrs Laboratory Tests Test 05/23/18 11:45 05/23/18 17:05 05/23/18 21:57 05/24/18 07:46 Bedside Glucose 136 143 143 96 Medications Medication Current Medications Acetaminophen (Tylenol Tab) 650 mg Q6H PRN PO MILD PAIN(1-3)OR ELEVATED TEMP; Start 05/20/18 at 03:00 Insulin Aspart (Novolog Insulin Pen) NOVOLOG *MILD* ALGORITHM WITH MEALS BEDTIME SC Last administered on 05/23/18at 17:11; Admin Dose 1 UNIT; Start 05/20/18 at 08:00 Amitriptyline HCl (Elavil) 25 mg HS PO Last administered on 05/23/18at 21:58; Admin Dose 25 MG; Start 05/20/18 at 21:00 Budesonide (Pulmicort (Neb)) 0.5 mg BID RESP THERAPY HHN Last administered on 05/23/18at 21:14; Admin Dose 0.5 MG; Start 05/20/18 at 09:00 Diltiazem HCl (Cardizem Iv) 10 mg Q6 PRN IV ELEVATED HEART RATE; Start 05/20/18 at 03:00 Famotidine (Pepcid) 20 mg BID PO Last administered on 05/23/18at 21:58; Admin Dose 20 MG; Start 05/20/18 at 09:00 Albuterol/ Ipratropium (Duoneb) 3 ml Q4H RESP THERAPY PRN HHN SHORTNESS OF BREATH Last administered on 05/20/18at 21:05; Admin Dose 3 ML; Start 05/20/18 at 03:00 Levothyroxine Sodium (Synthroid) 100 mcg DAILY@06 PO Last administered on 05/24/18at 05:51; Admin Dose 100 MCG; Start 05/20/18 at 06:00 Lisinopril (Zestril) 2.5 mg DAILY PO Last administered on 05/23/18at 08:06; Admin Dose 2.5 MG; Start 05/20/18 at 09:00 Methylprednisolone Sodium Succinate (Solu-Medrol) 40 mg DAILY IV Last administered on 05/23/18at 08:02; Admin Dose 40 MG; Start 05/20/18 at 09:00 Miscellaneous Information 1 ea NOTE XX ; Start 05/20/18 at 03:00 Glucose (Glutose) 15 gm Q15M PRN PO DECREASED GLUCOSE; Start 05/20/18 at 03:00 Glucose (Glutose) 22.5 gm Q15M PRN PO DECREASED GLUCOSE; Start 05/20/18 at 03:00 Dextrose (D50w Syringe) 25 ml Q15M PRN IV DECREASED GLUCOSE; Start 05/20/18 at 03:00 Dextrose (D50w Syringe) 50 ml Q15M PRN IV DECREASED GLUCOSE; Start 05/20/18 at 03:00 Glucagon (Glucagen) 1 mg Q15M PRN IM DECREASED GLUCOSE; Start 05/20/18 at 03:00 Glucose (Glutose) 15 gm Q15M PRN BUCCAL DECREASED GLUCOSE; Start 05/20/18 at 03:00 Metoprolol Succinate (Toprol Xl) 12.5 mg BID PO Last administered on 05/23/18at 08:07; Admin Dose 12.5 MG; Start 05/20/18 at 21:00 Spironolactone (Aldactone) 12.5 mg DAILY PO Last administered on 05/23/18 08:06; Admin Dose 12.5 MG; Start 05/21/18 at 09:00 Furosemide (Lasix) 20 mg DAILY PO Last administered on 05/23/18 08:05; Admin Dose 20 MG; Start 05/21/18 at 09:00 Albuterol/ Ipratropium (Duoneb) 3 ml Q6H RESP THERAPY HHN Last administered on 05/24/18 01:27; Admin Dose 3 ML; Start 05/21/18 at 14:00 Enoxaparin Sodium (Lovenox) 40 mg DAILY SC Last administered on 05/23/18 08:12; Admin Dose 40 MG; Start 05/21/18 at 16:30 Aspirin (Aspirin) 81 mg DAILY PO Last administered on 05/23/18 08:07; Admin Dose 81 MG; Start 05/22/18 at 09:00 ROSAURA KU May 24, 2018 09:31
[2018-05-24] MEDS: BUDESONIDE (NEB) 0.5MG/2ML AMP HHN SCH ×2 (09:32→21:55)
[2018-05-24] MEDS: METHYLPREDNISOLONE 40 MG INJ IV SCH (10:09)
[2018-05-24] MEDS: SPIRONOLACTONE 25 MG TAB PO SCH (10:10)
[2018-05-24] MEDS: FUROSEMIDE 20 MG TAB PO SCH ×2 (10:11→22:07)
[2018-05-24] MEDS: ASPIRIN 81 MG TAB PO SCH (10:12)
[2018-05-24] MEDS: LISINOPRIL 5 MG TAB PO SCH (10:12)
[2018-05-24] MEDS: FAMOTIDINE 20 MG TAB PO SCH ×2 (10:12→22:06)
[2018-05-24] MEDS: METOPROLOL (XL) 25 MG TAB PO SCH ×2 (10:12→22:06)
[2018-05-24] MEDS: ENOXAPARIN 40 MG/0.4 ML SYG SC SCH (10:20)
--- NOTE | 2018-05-24 13:27 | CONS ---
Assessment/Plan Assessment/Plan Hospital Course (Demo Recall) IMPRESSION: 1. Congestive heart failure, mitral valve, systolic, acute. 2. Cardiomyopathy with decreased left ventricular ejection fraction noted to be 25% to 30% by outside hospital echo. 3. Hypertension with currently borderline hypotension. 4. Diabetes mellitus. 5. Hypothyroidism. 6. Ongoing tobacco usage, but with E-cigarettes at this time. 7. Chronic obstructive pulmonary disease. 8. Positive troponin-reportedly negative LHC at OSH Recc: -Tele -Continue BB/ACEI -Continue lasix/aldactone and follow volume status closely and will increase dose of lasix -start asa -trend cardiac enzymes Consultation Date/Type/Reason Admit Date/Time May 19, 2018 at 23:47 Initial Consult Date 05/21/18 Type of Consult Cardiology Reason for Consultation CHF Requesting Provider: GLADYS CASIANO MD Date/Time of Note DATE: 05/24/18 TIME: 13:25 Exam/Review of Systems Vital Signs Vitals Vital Signs Date Temp Pulse Resp B/P (MAP) Pulse Ox O2 O2 Flow FiO2 Time Delivery Rate 05/24/18 63 12:01 05/24/18 98.1 20 117/67 93 11:36 (84) 05/24/18 2.0 09:32 05/24/18 Nasal 09:32 Cannula 05/24/18 30 04:00 Intake and Output 05/23/18 05/23/18 05/24/18 1515:00 23:00 07:00 IntakeIntake Total 1200 ml 200 ml BalanceBalance 1200 ml 200 ml Exam Exam Review of Systems: CONSTITUTIONAL: No fevers, chills. PULMONARY: No sob CARDIOVASCULAR: No chest pain/palpitations GASTROINTESTINAL: No nausea/vomiting. GENITOURINARY: No hematuria/dysuria. MUSCULOSKELETAL: No myagias/arthalgias. PSYCHIATRIC: The patient denies depression. NEUROLOGIC: No weakness Constitutional: alert Psych: no complaints Head: normocephalic ENMT: mucosa pink and moist Neck: supple, jvd (9 cm water) Respiratory: diminished breath sounds (at bases/B) Cardiovascular: regular rate and rhythm Gastrointestinal: soft, non-tender Musculoskeletal: muscle tone (normal) Extremities: edema (none) Neurological: other (No focval deficits) Labs Result Diagram: 05/22/18 0531 05/22/18530 Results 24hrs Laboratory Tests Test 05/23/18 17:05 05/23/18 21:57 05/24/18 07:46 05/24/18 09:28 Bedside Glucose 143 143 96 Blood Gas Blood arterial Specimen Source Arterial Blood 05/24/2018 10:40: Date Drawn 58 AM Arterial Blood pH 7.410 (Temp corrected) Arterial Blood 58.7 H pCO2 (Temp correct) Arterial Blood 78.2 L pO2 (Temp corrected) Arterial Blood 36.4 H HCO3 Arterial Blood 9.5 H Base Excess Arterial Blood 95.1 Oxygen Saturation Cassius Test ACCEPTAB Arterial Blood Right Radial Gas Puncture Site Arterial 0.3 Blood Carboxyhemo globin Arterial Blood 0.2 Methemoglobin Blood Gas A-a O2 44.9 H Differential Oxyhemoglobin 94.6 Percent Blood Gas 37.0 Temperature Blood Gas 2 Modality FiO2 27.0 Blood Gas TM Notified Whom Blood Gas 05/24/2018 10:48: Notified Time 28 AM Test 05/24/18 12:15 Bedside Glucose 102 Medications Medications Current Medications Acetaminophen (Tylenol Tab) 650 mg Q6H PRN PO MILD PAIN(1-3)OR ELEVATED TEMP; Start 05/20/18 at 03:00 Insulin Aspart (Novolog Insulin Pen) NOVOLOG *MILD* ALGORITHM WITH MEALS BEDTIME SC Last administered on 05/23/18 17:11; Admin Dose 1 UNIT; Start 05/20/18 at 08:00 Amitriptyline HCl (Elavil) 25 mg HS PO Last administered on 05/23/18 21:58; Admin Dose 25 MG; Start 05/20/18 at 21:00 Budesonide (Pulmicort (Neb)) 0.5 mg BID RESP THERAPY HHN Last administered on 05/24/18at 09:32; Admin Dose 0.5 MG; Start 05/20/18 at 09:00 Diltiazem HCl (Cardizem Iv) 10 mg Q6 PRN IV ELEVATED HEART RATE; Start 05/20/18 at 03:00 Famotidine (Pepcid) 20 mg BID PO Last administered on 05/24/18at 10:12; Admin Dose 20 MG; Start 05/20/18 at 09:00 Albuterol/ Ipratropium (Duoneb) 3 ml Q4H RESP THERAPY PRN HHN SHORTNESS OF BREATH Last administered on 4/11/19at 21:05; Admin Dose 3 ML; Start 05/20/18 at 03:00 Levothyroxine Sodium (Synthroid) 100 mcg DAILY@06 PO Last administered on 05/24/18 05:51; Admin Dose 100 MCG; Start 05/20/18 at 06:00 Lisinopril (Zestril) 2.5 mg DAILY PO Last administered on 05/24/18 10:12; Admin Dose 2.5 MG; Start 05/20/18 at 09:00 Methylprednisolone Sodium Succinate (Solu-Medrol) 40 mg DAILY IV Last administered on 05/24/18 10:09; Admin Dose 40 MG; Start 05/20/18 at 09:00 Miscellaneous Information 1 ea NOTE XX ; Start 05/20/18 at 03:00 Glucose (Glutose) 15 gm Q15M PRN PO DECREASED GLUCOSE; Start 05/20/18 at 03:00 Glucose (Glutose) 22.5 gm Q15M PRN PO DECREASED GLUCOSE; Start 05/20/18 at 03:00 Dextrose (D50w Syringe) 25 ml Q15M PRN IV DECREASED GLUCOSE; Start 05/20/18 at 03:00 Dextrose (D50w Syringe) 50 ml Q15M PRN IV DECREASED GLUCOSE; Start 05/20/18 at 03:00 Glucagon (Glucagen) 1 mg Q15M PRN IM DECREASED GLUCOSE; Start 05/20/18 at 03:00 Glucose (Glutose) 15 gm Q15M PRN BUCCAL DECREASED GLUCOSE; Start 05/20/18 at 03:00 Metoprolol Succinate (Toprol Xl) 12.5 mg BID PO Last administered on 05/24/18at 10:12; Admin Dose 12.5 MG; Start 05/20/18 at 21:00 Spironolactone (Aldactone) 12.5 mg DAILY PO Last administered on 05/24/18 10:10; Admin Dose 12.5 MG; Start 05/21/18 at 09:00 Furosemide (Lasix) 20 mg DAILY PO Last administered on 05/24/18 10:11; Admin Dose 20 MG; Start 05/21/18 at 09:00 Albuterol/ Ipratropium (Duoneb) 3 ml Q6H RESP THERAPY HHN Last administered on 05/24/18 09:32; Admin Dose 3 ML; Start 05/21/18 at 14:00 Enoxaparin Sodium (Lovenox) 40 mg DAILY SC Last administered on 05/24/18at 10:2 0; Admin Dose 40 MG; Start 05/21/18 at 16:30 Aspirin (Aspirin) 81 mg DAILY PO Last administered on 05/24/18at 10:12; Admin Dose 81 MG; Start 05/22/18 at 09:00 CAR YEN May 24, 2018 13:26
--- NOTE | 2018-05-24 15:45 | PN ---
Date/Time of Note Date/Time of Note DATE: 05/24/18 TIME: 15:39 Assessment/Plan VTE Prophylaxis Risk score (from Ns)>0 risk: 3 SCD applied (from Ns): Yes Pharmacological prophylaxis: NA/contraindicated Pharm contraindication: low risk/ambulating Lines/Catheters IV [facility]from [facility] Assessment/Plan Hospital Course 72-year-old female with Hospital Course 1. Shortness of breath secondary to chronic obstructive pulmonary disease/congestive heart failure exacerbation. 2. Nonischemic cardiomyopathy. 3. Cardiomyopathy with ejection fraction of 25% to 30%. 4. likely underlying COPD. With chronic type II respiratory failure. 5. History of nonsustained ventricular tachycardia. 6. Hypertension. 7. Hypothyroidism. 8. Overweight. 9. History of chronic smoking. 10 Congestive heart failure, mitral valve, systolic, acute. Assessment/Plan -Continue with aspirin /statin/ beta-robbi 12.5 bid and lisnopril 2.5 -cw Lasix/spironolactone per cards -DuoNeb -change Medrol to prednisone -f/up with the cardiology/pul Rec. 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 [facility] home health: spoke to Dr mckeon who did angiogram at [place] which was normal Result Diagram: 05/22/1853005/22/18530 Results 24hrs Laboratory Tests Test 05/23/18 17:05 05/23/18 21:57 05/24/18 07:46 05/24/18 09:28 Bedside Glucose 143 143 96 Blood Gas Blood arterial Specimen Source Arterial Blood 05/24/2018 10:40: Date Drawn 58 AM Arterial Blood pH 7.410 (Temp corrected) Arterial Blood 58.7 H pCO2 (Temp correct) Arterial Blood 78.2 L pO2 (Temp corrected) Arterial Blood 36.4 H HCO3 Arterial Blood 9.5 H Base Excess Arterial Blood 95.1 Oxygen Saturation Cassius Test ACCEPTAB Arterial Blood Right Radial Gas Puncture Site Arterial 0.3 Blood Carboxyhemo globin Arterial Blood 0.2 Methemoglobin Blood Gas A-a O2 44.9 H Differential Oxyhemoglobin 94.6 Percent Blood Gas 37.0 Temperature Blood Gas 2 Modality FiO2 27.0 Blood Gas TM Notified Whom Blood Gas 05/24/2018 10:48: Notified Time 28 AM Test 4/15/19 12:15 Bedside Glucose 102 Subjective 24 Hr Interval Summary Free Text/Dictation Feels well. Exam/Review of Systems Exam Vitals Vital Signs Date Temp Pulse Resp B/P (MAP) Pulse Ox O2 O2 Flow FiO2 Time Delivery Rate 05/24/18 63 12:01 05/24/18 98.1 20 117/67 93 11:36 (84) 05/24/18 2.0 09:32 05/24/18 Nasal 09:32 Cannula 05/24/18 30 04:00 Intake and Output 05/23/18 05/23/18 05/24/18 1414:59 22:59 06:59 IntakeIntake Total 1200 ml 200 ml BalanceBalance 1200 ml 200 ml Exam on 3 l nasal cannula Constitutional: alert, oriented ENMT: nl external ears & nose Respiratory: diminished breath sounds, wheezing; No clear to auscultation, No normal air movement, No congested cough, No crackles/rales, No intercostal retraction, No labored breathing, No respirations, No tactile fremitus, No other Cardiovascular: regular rate and rhythm Gastrointestinal: soft Results Results 24hrs Laboratory Tests Test 05/23/18 17:05 05/23/18 21:57 05/24/18 07:46 05/24/18 09:28 Bedside Glucose 143 143 96 Blood Gas Blood arterial Specimen Source Arterial Blood 05/24/2018 10:40: Date Drawn 58 AM Arterial Blood pH 7.410 (Temp corrected) Arterial Blood 58.7 H pCO2 (Temp correct) Arterial Blood 78.2 L pO2 (Temp corrected) Arterial Blood 36.4 H HCO3 Arterial Blood 9.5 H Base Excess Arterial Blood 95.1 Oxygen Saturation Cassius Test ACCEPTAB Arterial Blood Right Radial Gas Puncture Site Arterial 0.3 Blood Carboxyhemo globin Arterial Blood 0.2 Methemoglobin Blood Gas A-a O2 44.9 H Differential Oxyhemoglobin 94.6 Percent Blood Gas 37.0 Temperature Blood Gas 2 Modality FiO2 27.0 Blood Gas TM Notified Whom Blood Gas 05/24/2018 10:48: Notified Time 28 AM Test 05/24/18 12:15 Bedside Glucose 102 Medications Medication Current Medications Acetaminophen (Tylenol Tab) 650 mg Q6H PRN PO MILD PAIN(1-3)OR ELEVATED TEMP; Start 05/20/18 at 03:00 Insulin Aspart (Novolog Insulin Pen) NOVOLOG *MILD* ALGORITHM WITH MEALS BEDTIME SC Last administered on 05/23/18 17:11; Admin Dose 1 UNIT; Start 05/20/18 at 08:00 Amitriptyline HCl (Elavil) 25 mg HS PO Last administered on 05/23/18 21:58; Admin Dose 25 MG; Start 05/20/18 at 21:00 Budesonide (Pulmicort (Neb)) 0.5 mg BID RESP THERAPY HHN Last administered on 05/24/18at 09:32; Admin Dose 0.5 MG; Start 05/20/18 at 09:00 Diltiazem HCl (Cardizem Iv) 10 mg Q6 PRN IV ELEVATED HEART RATE; Start 05/20/18 at 03:00 Famotidine (Pepcid) 20 mg BID PO Last administered on 05/24/18at 10:12; Admin Dose 20 MG; Start 05/20/18 at 09:00 Albuterol/ Ipratropium (Duoneb) 3 ml Q4H RESP THERAPY PRN HHN SHORTNESS OF BREATH Last administered on 05/20/18at 21:05; Admin Dose 3 ML; Start 05/20/18 at 03:00 Levothyroxine Sodium (Synthroid) 100 mcg DAILY@06 PO Last administered on 05/24/18at 05:51; Admin Dose 100 MCG; Start 05/20/18 at 06:00 Lisinopril (Zestril) 2.5 mg DAILY PO Last administered on 05/24/18at 10:12; Admin Dose 2.5 MG; Start 05/20/18 at 09:00 Miscellaneous Information 1 ea NOTE XX ; Start 05/20/18 at 03:00 Glucose (Glutose) 15 gm Q15M PRN PO DECREASED GLUCOSE; Start 05/20/18 at 03:00 Glucose (Glutose) 22.5 gm Q15M PRN PO DECREASED GLUCOSE; Start 05/20/18 at 03:00 Dextrose (D50w Syringe) 25 ml Q15M PRN IV DECREASED GLUCOSE; Start 05/20/18 at 03:00 Dextrose (D50w Syringe) 50 ml Q15M PRN IV DECREASED GLUCOSE; Start 05/20/18 at 03:00 Glucagon (Glucagen) 1 mg Q15M PRN IM DECREASED GLUCOSE; Start 05/20/18 at 03:00 Glucose (Glutose) 15 gm Q15M PRN BUCCAL DECREASED GLUCOSE; Start 05/20/18 at 03:00 Metoprolol Succinate (Toprol Xl) 12.5 mg BID PO Last administered on 05/24/18at 10:12; Admin Dose 12.5 MG; Start 05/20/18 at 21:00 Spironolactone (Aldactone) 12.5 mg DAILY PO Last administered on 05/24/18at 10:10; Admin Dose 12.5 MG; Start 05/21/18 at 09:00 Albuterol/ Ipratropium (Duoneb) 3 ml Q6H RESP THERAPY HHN Last administered on 05/24/18at 14:44; Admin Dose 3 ML; Start 05/21/18 at 14:00 Enoxaparin Sodium (Lovenox) 40 mg DAILY SC Last administered on 05/24/18at 10:20; Admin Dose 40 MG; Start 05/21/18 at 16:30 Aspirin (Aspirin) 81 mg DAILY PO Last administered on 05/24/18at 10:12; Admin Dose 81 MG; Start 05/22/18 at 09:00 Furosemide (Lasix) 20 mg BID PO ; Start 05/24/18 at 21:00 Metformin HCl (Glucophage) 500 mg BID WITH MEALS PO ; Start 05/24/18 at 18:00 Diagnostic Test (Pha) (Accu-Chek) 1 ea AC MEALS AND BEDTIME XX ; Start 05/24/18 at 17:30 Prednisone (Prednisone) 30 mg DAILY PO ; Start 05/25/18 at 09:00 GLADYS CASIANO MD May 24, 2018 15:45
[2018-05-24] MEDS: ACCU-CHEK XX SCH ×2 (17:18→21:00)
[2018-05-24] MEDS: metFORMIN 500 MG TAB PO SCH (17:21)
[2018-05-24] MEDS: AMITRIPTYLINE 25 MG TAB PO SCH (22:07)
[2018-05-25] VITALS (12 sets, daily range): BP systolic 91–112; BP diastolic 52–69; PULSE 60–86; RESP 17–20
[2018-05-25] MEDS: ALBUTEROL/IPRATROPIUM (NEB) 3 ML AMP HHN SCH ×4 (02:14→20:40)
[2018-05-25] MEDS: LEVOTHYROXINE 100 MCG TAB PO SCH (05:50)
[2018-05-25] MEDS: ACCU-CHEK XX SCH ×4 (07:00→20:50)
[2018-05-25] MEDS: INSULIN ASPART [NOVOLOG] 3 ML PEN SC SCH ×4 (08:00→20:50)
--- NOTE | 2018-05-25 08:16 | CONS ---
Consult Date/Type/Reason Admit Date/Time May 19, 2018 at 23:47 Initial Consult Date 05/21/18 Requesting Provider: GLADYS CASIANO MD Date/Time of Note DATE: 05/25/18 TIME: 08:14 Subjective NO acute events - pt feels better - no CP now - con't med rx. ROS: No fever, no chills, no nausea, no vomiting, no diarrhea/constipation No recent weight changes No chest pain, no PND, no orthopnea - chronic SOB, better now No dizziness, blurred vision No thirst, no heat or cold intolerance Objective Vitals Vital Signs Date Temp Pulse Resp B/P (MAP) Pulse Ox O2 O2 Flow FiO2 Time Delivery Rate 05/25/18 98.6 65 18 99/65 (76) 100 07:52 05/25/18 Nasal 2.0 07:36 Cannula 05/25/18 28 02:01 Intake and Output 05/24/18 05/24/18 05/25/18 1515:00 23:00 07:00 IntakeIntake Total 500 ml 200 ml BalanceBalance 500 ml 200 ml Exam General: WN/WD/NAD, AOx 3 HEENT: Unicetric/atraumatic/EOMI (follow commands) NECK: JVD elevated, no thyromegaly Lymph: no lymphadenopathy HEART: regular with no S3, II/ systolic murmur at apex, mild wheezing LUNGS: Coarse sounds ABD: soft, NT, ND, +BS : Intact Neuro: non focal SKIN: chronic changes EXT: trace edema Results/Medications Result Diagram: 05/25/18 0530 05/25/18 0530 Results 24 hrs Laboratory Tests Test 05/24/18 09:28 05/24/18 12:15 05/24/18 17:17 05/24/18 22:00 Blood Gas Blood arterial Specimen Source Arterial Blood 05/24/2018 10:40: Date Drawn 58 AM Arterial Blood pH 7.410 (Temp corrected) Arterial Blood 58.7 H pCO2 (Temp correct) Arterial Blood 78.2 L pO2 (Temp corrected) Arterial Blood 36.4 H HCO3 Arterial Blood 9.5 H Base Excess Arterial Blood 95.1 Oxygen Saturation Cassius Test ACCEPTAB Arterial Blood Right Radial Gas Puncture Site Arterial 0.3 Blood Carboxyhemo globin Arterial Blood 0.2 Methemoglobin Blood Gas A-a O2 44.9 H Differential Oxyhemoglobin 94.6 Percent Blood Gas 37.0 Temperature Blood Gas 2 Modality FiO2 27.0 Blood Gas TM Notified Whom Blood Gas 05/24/2018 10:48: Notified Time 28 AM Bedside Glucose 102 292 H 192 Test 05/25/18 05:30 White Blood Count 10.1 Red Blood Count 4.45 Hemoglobin 13.6 Hematocrit 42.8 Mean Corpuscular 96.2 Volume Mean Corpuscular 30.6 Hemoglobin Mean Corpuscular 31.8 L Hemoglobin Concen t Red Cell 13.1 Distribution Width Platelet Count 174 Mean Platelet 10.7 H Volume Immature 0.800 H Granulocytes % Neutrophils % 81.0 H Lymphocytes % 10.6 L Monocytes % 6.9 Eosinophils % 0.5 Basophils % 0.2 Nucleated Red 0.0 Blood Cells % Immature 0.080 H Granulocytes # Neutrophils # 8.2 H Lymphocytes # 1.1 Monocytes # 0.7 Eosinophils # 0.1 Basophils # 0.0 Nucleated Red 0.0 Blood Cells # Sodium Level 139 Potassium Level 4.9 Chloride Level 96 L Carbon Dioxide 38 H Level Anion Gap 5 Blood Urea 40 H Nitrogen Creatinine 0.97 Est Glomerular Filtrat Rate mL/min Glucose Level 136 Calcium Level 9.3 Phosphorus Level 3.6 Magnesium Level 2.1 Home Meds Reported Medications Amitriptyline Hcl* (Elavil*) 25 Mg Tab, 25 MG PO HS, #30 TAB 05/20/18 Levothyroxine Sodium* (Synthroid*) 100 Mcg Tablet, 100 MCG PO BEFORE BREAKFAST, #30 TAB 05/20/18 Medications Current Medications Acetaminophen (Tylenol Tab) 650 mg Q6H PRN PO MILD PAIN(1-3)OR ELEVATED TEMP; Start 05/20/18 at 03:00 Insulin Aspart (Novolog Insulin Pen) NOVOLOG *MILD* ALGORITHM WITH MEALS BEDTIME SC Last administered on 05/24/18at 22:09; Admin Dose 1 UNIT; Start 05/20/18 at 08:00 Amitriptyline HCl (Elavil) 25 mg HS PO Last administered on 05/24/18at 22:07; Admin Dose 25 MG; Start 05/20/18 at 21:00 Budesonide (Pulmicort (Neb)) 0.5 mg BID RESP THERAPY HHN Last administered on 05/24/18at 21:55; Admin Dose 0.5 MG; Start 05/20/18 at 09:00 Diltiazem HCl (Cardizem Iv) 10 mg Q6 PRN IV ELEVATED HEART RATE; Start 05/20/18 at 03:00 Famotidine (Pepcid) 20 mg BID PO Last administered on 05/24/18at 22:06; Admin Dose 20 MG; Start 05/20/18 at 09:00 Albuterol/ Ipratropium (Duoneb) 3 ml Q4H RESP THERAPY PRN HHN SHORTNESS OF BREATH Last administered on 05/20/18at 21:05; Admin Dose 3 ML; Start 05/20/18 at 03:00 Levothyroxine Sodium (Synthroid) 100 mcg DAILY@06 PO Last administered on 05/25/18at 05:50; Admin Dose 100 MCG; Start 05/20/18 at 06:00 Lisinopril (Zestril) 2.5 mg DAILY PO Last administered on 05/24/18at 10:12; Admin Dose 2.5 MG; Start 05/20/18 at 09:00 Miscellaneous Information 1 ea NOTE XX ; Start 05/20/18 at 03:00 Glucose (Glutose) 15 gm Q15M PRN PO DECREASED GLUCOSE; Start 05/20/18 at 03:00 Glucose (Glutose) 22.5 gm Q15M PRN PO DECREASED GLUCOSE; Start 05/20/18 at 03:00 Dextrose (D50w Syringe) 25 ml Q15M PRN IV DECREASED GLUCOSE; Start 05/20/18 at 03:00 Dextrose (D50w Syringe) 50 ml Q15M PRN IV DECREASED GLUCOSE; Start 05/20/18 at 03:00 Glucagon (Glucagen) 1 mg Q15M PRN IM DECREASED GLUCOSE; Start 05/20/18 at 03:00 Glucose (Glutose) 15 gm Q15M PRN BUCCAL DECREASED GLUCOSE; Start 05/20/18 at 03:00 Metoprolol Succinate (Toprol Xl) 12.5 mg BID PO Last administered on 05/24/18at 22:06; Admin Dose 12.5 MG; Start 05/20/18 at 21:00 Spironolactone (Aldactone) 12.5 mg DAILY PO Last administered on 05/24/18at 10:10; Admin Dose 12.5 MG; Start 05/21/18 at 09:00 Albuterol/ Ipratropium (Duoneb) 3 ml Q6H RESP THERAPY HHN Last administered on 05/25/18 02:14; Admin Dose 3 ML; Start 05/21/18 at 14:00 Enoxaparin Sodium (Lovenox) 40 mg DAILY SC Last administered on 05/24/18 10:20; Admin Dose 40 MG; Start 05/21/18 at 16:30 Aspirin (Aspirin) 81 mg DAILY PO Last administered on 05/24/18 10:12; Admin D ose 81 MG; Start 05/22/18 at 09:00 Furosemide (Lasix) 20 mg BID PO Last administered on 05/24/18 22:07; Admin Dose 20 MG; Start 05/24/18 at 21:00 Metformin HCl (Glucophage) 500 mg BID WITH MEALS PO Last administered on 05/24/18 17:21; Admin Dose 500 MG; Start 05/24/18 at 18:00 Diagnostic Test (Pha) (Accu-Chek) 1 ea AC MEALS AND BEDTIME XX Last administered on 05/24/18 21:00; Admin Dose 1 EA; Start 05/24/18 at 17:30 Prednisone (Prednisone) 30 mg DAILY PO ; Start 05/25/18 at 09:00 Assessment/Plan Hospital Course (Demo Recall) 1. Congestive heart failure, mitral valve, systolic, acute - responded to diuresis, better now. 2. Cardiomyopathy with decreased left ventricular ejection fraction noted to be 25% to 30% by outside hospital echo.Outpt ICD eval advised. 3. Hypertension with currently borderline hypotension - BP well controlled. 4. Diabetes mellitus- on meds, con't to keep euglycemic. 5. Hypothyroidism. 6. Ongoing tobacco usage, but with E-cigarettes at this time. Discussed. 7. Chronic obstructive pulmonary disease. 8. Positive troponin-reportedly negative LHC at OSH - no intervention planned now. KERA VACA MD May 25, 2018 08:16
[2018-05-25] MEDS: predniSONE 10 MG TAB PO SCH (08:17)
[2018-05-25] MEDS: METOPROLOL (XL) 25 MG TAB PO SCH ×2 (08:17→20:49)
[2018-05-25] MEDS: SPIRONOLACTONE 25 MG TAB PO SCH (08:18)
[2018-05-25] MEDS: metFORMIN 500 MG TAB PO SCH ×2 (08:18→17:34)
[2018-05-25] MEDS: FAMOTIDINE 20 MG TAB PO SCH ×2 (08:18→20:49)
[2018-05-25] MEDS: ASPIRIN 81 MG TAB PO SCH (08:19)
[2018-05-25] MEDS: LISINOPRIL 5 MG TAB PO SCH (08:19)
[2018-05-25] MEDS: FUROSEMIDE 20 MG TAB PO SCH ×2 (08:19→20:49)
[2018-05-25] MEDS: ENOXAPARIN 40 MG/0.4 ML SYG SC SCH (08:34)
[2018-05-25] MEDS: BUDESONIDE (NEB) 0.5MG/2ML AMP HHN SCH ×2 (10:05→20:40)
--- NOTE | 2018-05-25 10:33 | CONS ---
Assessment/Plan Assessment/Plan Assessment/Plan (Daily) Assessment recommendations; 1. patient received exacerbation with likely underlying chronic type II respiratory failure, clinically improving. ABG showing significant reduction in PCO2. 2. Prior history of head and neck cancer. Decrease FiO2 to 1 L nasal cannula. Will obtain follow-up ABG as well. Patient likely would need to have home noninvasive positive pressure ventilator. Consultation Date/Type/Reason Admit Date/Time May 19, 2018 at 23:47 Initial Consult Date 05/21/18 Type of Consult Pulmonary Patient is a 72-year-old lady who came into the hospital with a 2-day history of coughing with some shortness of breath. Upon evaluation a chest x-ray was done which is showing mild cardiomegaly, ABG also was done which is showing hypoxemic and hypercapnic respiratory failure which is partly compensated. By the time I saw the patient in the room, patient feeling much better and denies any further shortness of breath, also denies any nocturnal symptoms of shortness of breath at home, any daytime sleepiness or fatigue. According to her she is in generally good health at home. She denies any recent high fever, body aches or myalgias. Past medical history; 1 history of head and neck cancer, status post extensive right neck resection several years ago. 2. History of hypertension 3. Possibly COPD with chronic type II respiratory failure. 4. History of hypothyroidism. Medications; reviewed. Allergies; none. Social history; patient has an extensive smoking history. Family history; patient lives with her daughter at home. No history of any malignancy in the family. 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 Review of systems; denies any headache, seizures, visual changes. Any sinus s ymptoms. Denies any dysphagia. Shortness of breath has improved significantly since admission. Complains of very minimal cough, denies any wheezing, sputum production hemoptysis. Denies any abdominal pain, nausea vomiting. Any fever or chills. Any body aches or myalgias. Any orthopnea. Any snoring, daytime sleepiness or fatigue. General exam; elderly lady, awake alert, currently in no distress. On 2 L nasal cannula. Requesting Provider: GLADYS CASIANO MD Date/Time of Note DATE: 05/25/18 TIME: 10:31 24 HR Interval Summary Free Text/Dictation Patient's condition is stable. Remains awake and alert. Denies any shortness of breath. General exam; elderly lady, awake alert, currently no distress. Exam/Review of Systems Exam Vitals Vital Signs Date Temp Pulse Resp B/P (MAP) Pulse Ox O2 O2 Flow FiO2 Time Delivery Rate 05/25/18 97 2.0 10:11 05/25/18 65 20 Nasal 10:10 Cannula 05/25/18 98.6 99/65 (76) 07:52 05/25/18 28 02:01 Intake and Output 05/24/18 05/24/18 05/25/18 1515:00 23:00 07:00 IntakeIntake Total 500 ml 200 ml BalanceBalance 500 ml 200 ml Exam H EENT exam; supple neck, no JVD. Surgical changes involving right neck. No neck masses. Chest exam; clear to auscultation. S1-S2 audible, no murmurs. Regular rhythm. Abdomen exam; soft, no organomegaly. Bowel sounds audible. Extremity exam; no peripheral edema clubbing. 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 Results Result Diagram: 05/25/18 0530 05/25/18 0530 Results 24hrs Laboratory Tests Test 05/24/18 12:15 05/24/18 17:17 05/24/18 22:00 05/25/18 05:30 Bedside Glucose 102 292 H 192 White Blood Count 10.1 Red Blood Count 4.45 Hemoglobin 13.6 Hematocrit 42.8 Mean Corpuscular 96.2 Volume Mean Corpuscular 30.6 Hemoglobin Mean Corpuscular 31.8 L Hemoglobin Concent Red Cell 13.1 Distribution Width Platelet Count 174 Mean Platelet Volume 10.7 H Immature 0.800 H Granulocytes % Neutrophils % 81.0 H Lymphocytes % 10.6 L Monocytes % 6.9 Eosinophils % 0.5 Basophils % 0.2 Nucleated Red Blood 0.0 Cells % Immature 0.080 H Granulocytes # Neutrophils # 8.2 H Lymphocytes # 1.1 Monocytes # 0.7 Eosinophils # 0.1 Basophils # 0.0 Nucleated Red Blood 0.0 Cells # Sodium Level 139 Potassium Level 4.9 Chloride Level 96 L Carbon Dioxide Level 38 H Anion Gap 5 Blood Urea Nitrogen 40 H Creatinine 0.97 Est Glomerular Filtrat Rate mL/min Glucose Level 136 Calcium Level 9.3 Phosphorus Level 3.6 Magnesium Level 2.1 Test 05/25/18 08:13 Bedside Glucose 109 Medications Medication Current Medications Acetaminophen (Tylenol Tab) 650 mg Q6H PRN PO MILD PAIN(1-3)OR ELEVATED TEMP; Start 05/20/18 at 03:00 Insulin Aspart (Novolog Insulin Pen) NOVOLOG *MILD* ALGORITHM WITH MEALS BEDTIME SC Last administered on 05/24/18at 22:09; Admin Dose 1 UNIT; Start 05/20/18 at 08:00 Amitriptyline HCl (Elavil) 25 mg HS PO Last administered on 05/24/18at 22:07; Admin Dose 25 MG; Start 05/20/18 at 21:00 Budesonide (Pulmicort (Neb)) 0.5 mg BID RESP THERAPY HHN Last administered on 05/25/18at 10:05; Admin Dose 0.5 MG; Start 05/20/18 at 09:00 Diltiazem HCl (Cardizem Iv) 10 mg Q6 PRN IV ELEVATED HEART RATE; Start 05/20/18 at 03:00 Famotidine (Pepcid) 20 mg BID PO Last administered on 05/25/18at 08:18; Admin Dose 20 MG; Start 05/20/18 at 09:00 Albuterol/ Ipratropium (Duoneb) 3 ml Q4H RESP THERAPY PRN HHN SHORTNESS OF BREATH Last administered on 05/20/18at 21:05; Admin Dose 3 ML; Start 05/20/18 at 03:00 Levothyroxine Sodium (Synthroid) 100 mcg DAILY@06 PO Last administered on 05/25/18at 05:50; Admin Dose 100 MCG; Start 05/20/18 at 06:00 Lisinopril (Zestril) 2.5 mg DAILY PO Last administered on 05/25/18at 08:19; Admin Dose 2.5 MG; Start 05/20/18 at 09:00 Miscellaneous Information 1 ea NOTE XX ; Start 05/20/18 at 03:00 Glucose (Glutose) 15 gm Q15M PRN PO DECREASED GLUCOSE; Start 05/20/18 at 03:00 Glucose (Glutose) 22.5 gm Q15M PRN PO DECREASED GLUCOSE; Start 05/20/18 at 03:00 Dextrose (D50w Syringe) 25 ml Q15M PRN IV DECREASED GLUCOSE; Start 05/20/18 at 03:00 Dextrose (D50w Syringe) 50 ml Q15M PRN IV DECREASED GLUCOSE; Start 05/20/18 at 03:00 Glucagon (Glucagen) 1 mg Q15M PRN IM DECREASED GLUCOSE; Start 05/20/18 at 03:00 Glucose (Glutose) 15 gm Q15M PRN BUCCAL DECREASED GLUCOSE; Start 05/20/18 at 03:00 Metoprolol Succinate (Toprol Xl) 12.5 mg BID PO Last administered on 05/24/18at 22:06; Admin Dose 12.5 MG; Start 05/20/18 at 21:00 Spironolactone (Aldactone) 12.5 mg DAILY PO Last administered on 05/25/18 08:18; Admin Dose 12.5 MG; Start 05/21/18 at 09:00 Albuterol/ Ipratropium (Duoneb) 3 ml Q6H RESP THERAPY HHN Last administered on 05/25/18 09:58; Admin Dose 3 ML; Start 05/21/18 at 14:00 Enoxaparin Sodium (Lovenox) 40 mg DAILY SC Last administered on 05/25/18 08:34; Admin Dose 40 MG; Start 05/21/18 at 16:30 Aspirin (Aspirin) 81 mg DAILY PO Last administered on 05/25/18 08:19; Admin Dose 81 MG; Start 05/22/18 at 09:00 Furosemide (Lasix) 20 mg BID PO Last administered on 05/25/18 08:19; Admin Dos e 20 MG; Start 05/24/18 at 21:00 Metformin HCl (Glucophage) 500 mg BID WITH MEALS PO Last administered on 05/25/18 08:18; Admin Dose 500 MG; Start 05/24/18 at 18:00 Diagnostic Test (Pha) (Accu-Chek) 1 ea AC MEALS AND BEDTIME XX Last administered on 05/24/18 21:00; Admin Dose 1 EA; Start 05/24/18 at 17:30 Prednisone (Prednisone) 30 mg DAILY PO Last administered on 05/25/18 08:17; Admin Dose 30 MG; Start 05/25/18 at 09:00 ROSAURA KU May 25, 2018 10:33
--- NOTE | 2018-05-25 17:24 | PN ---
Date/Time of Note Date/Time of Note DATE: 05/25/18 TIME: 17:23 Assessment/Plan VTE Prophylaxis Risk [place]from [facility] [place]0 risk: 3 SCD applied (from [facility] [place] Yes Pharmacological prophylaxis: NA/contraindicated Pharm contraindication: low risk/ambulating Lines/Catheters IV C[facility]ter Type [facility]from [facility] Saline Lock Assessment/Plan Hospital Course 72-year-old female with Hospital Course 1. Shortness of breath secondary to chronic obstructive pulmonary disease/congestive heart failure exacerbation. 2. Nonischemic cardiomyopathy. 3. Cardiomyopathy with ejection fraction of 25% to 30%. 4. likely underlying COPD. With chronic type II respiratory failure. 5. History of nonsustained ventricular tachycardia. 6. Hypertension. 7. Hypothyroidism. 8. Overweight. 9. History of chronic smoking. 10 Congestive heart failure, mitral valve, systolic, acute. Assessment/Plan -Continue with aspirin /statin/ beta-robbi 12.5 bid and lisnopril 2.5 -cw Lasix/spironolactone per cards -DuoNeb -cW prednisone -f/up with the cardiology/pul Rec. 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 for home oxygen bipap home health: spoke to Dr mckeon who did angiogram at [facility] which was normal BiPAP will be arranged for tomorrow To arrange for front wheel walker per PT Result Diagram: 05/25/18 0530 05/25/18 0530 Results 24hrs Laboratory Tests Test 05/24/18 22:00 05/25/18 05:30 05/25/18 08:13 05/25/18 12:14 Bedside Glucose 192 109 176 White Blood Count 10.1 Red Blood Count 4.45 Hemoglobin 13.6 Hematocrit 42.8 Mean Corpuscular 96.2 Volume Mean Corpuscular 30.6 Hemoglobin Mean Corpuscular 31.8 L Hemoglobin Concent Red Cell 13.1 Distribution Width Platelet Count 174 Mean Platelet Volume 10.7 H Immature 0.800 H Granulocytes % Neutrophils % 81.0 H Lymphocytes % 10.6 L Monocytes % 6.9 Eosinophils % 0.5 Basophils % 0.2 Nucleated Red Blood 0.0 Cells % Immature 0.080 H Granulocytes # Neutrophils # 8.2 H Lymphocytes # 1.1 Monocytes # 0.7 Eosinophils # 0.1 Basophils # 0.0 Nucleated Red Blood 0.0 Cells # Sodium Level 139 Potassium Level 4.9 Chloride Level 96 L Carbon Dioxide Level 38 H Anion Gap 5 Blood Urea Nitrogen 40 H Creatinine 0.97 Est Glomerular Filtrat Rate mL/min Glucose Level 136 Calcium Level 9.3 Phosphorus Level 3.6 Magnesium Level 2.1 Subjective 24 Hr Interval Summary Free Text/Dictation Feels good. Exam/Review of Systems Exam Vitals Vital Signs Date Temp Pulse Resp B/P (MAP) Pulse Ox O2 O2 Flow FiO2 Time Delivery Rate 05/25/18 68 16:00 05/25/18 97 2.0 15:36 05/25/18 18 Nasal 15:35 Cannula 05/25/18 98.6 91/57 (68) 15:28 05/25/18 28 02:01 Intake and Output 05/24/18 05/24/18 05/25/18 1515:00 23:00 07:00 IntakeIntake Total 500 ml 200 ml BalanceBalance 500 ml 200 ml Exam on 3 l nasal cannula Constitutional: alert, oriented ENMT: nl external ears & nose Respiratory: diminished breath sounds, wheezing; No clear to auscultation, No normal air movement, No congested cough, No crackles/rales, No intercostal retraction, No labored breathing, No respirations, No tactile fremitus, No other Cardiovascular: regular rate and rhythm Gastrointestinal: soft Results Results 24hrs Laboratory Tests Test 05/24/18 22:00 05/25/18 05:30 05/25/18 08:13 05/25/18 12:14 Bedside Glucose 192 109 176 White Blood Count 10.1 Red Blood Count 4.45 Hemoglobin 13.6 Hematocrit 42.8 Mean Corpuscular 96.2 Volume Mean Corpuscular 30.6 Hemoglobin Mean Corpuscular 31.8 L Hemoglobin Concent Red Cell 13.1 Distribution Width Platelet Count 174 Mean Platelet Volume 10.7 H Immature 0.800 H Granulocytes % Neutrophils % 81.0 H Lymphocytes % 10.6 L Monocytes % 6.9 Eosinophils % 0.5 Basophils % 0.2 Nucleated Red Blood 0.0 Cells % Immature 0.080 H Granulocytes # Neutrophils # 8.2 H Lymphocytes # 1.1 Monocytes # 0.7 Eosinophils # 0.1 Basophils # 0.0 Nucleated Red Blood 0.0 Cells # Sodium Level 139 Potassium Level 4.9 Chloride Level 96 L Carbon Dioxide Level 38 H Anion Gap 5 Blood Urea Nitrogen 40 H Creatinine 0.97 Est Glomerular Filtrat Rate mL/min Glucose Level 136 Calcium Level 9.3 Phosphorus Level 3.6 Magnesium Level 2.1 Medications Medication Current Medications Acetaminophen (Tylenol Tab) 650 mg Q6H PRN PO MILD PAIN(1-3)OR ELEVATED TEMP; Start 05/20/18 at 03:00 Insulin Aspart (Novolog Insulin Pen) NOVOLOG *MILD* ALGORITHM WITH MEALS BEDTIME SC Last administered on 05/25/18at 12:26; Admin Dose 1 UNIT; Start 05/20/18 at 08:00 Amitriptyline HCl (Elavil) 25 mg HS PO Last administered on 05/24/18 22:07; Admin Dose 25 MG; Start 05/20/18 at 21:00 Budesonide (Pulmicort (Neb)) 0.5 mg BID RESP THERAPY HHN Last administered on 05/25/18at 10:05; Admin Dose 0.5 MG; Start 05/20/18 at 09:00 Diltiazem HCl (Cardizem Iv) 10 mg Q6 PRN IV ELEVATED HEART RATE; Start 05/20/18 at 03:00 Famotidine (Pepcid) 20 mg BID PO Last administered on 05/25/18at 08:18; Admin Dose 20 MG; Start 05/20/18 at 09:00 Albuterol/ Ipratropium (Duoneb) 3 ml Q4H RESP THERAPY PRN HHN SHORTNESS OF BREATH Last administered on 05/20/18at 21:05; Admin Dose 3 ML; Start 05/20/18 at 03:00 Levothyroxine Sodium (Synthroid) 100 mcg DAILY@06 PO Last administered on 05/25/18at 05:50; Admin Dose 100 MCG; Start 05/20/18 at 06:00 Lisinopril (Zestril) 2.5 mg DAILY PO Last administered on 05/25/18at 08:19; Admin Dose 2.5 MG; Start 05/20/18 at 09:00 Miscellaneous Information 1 ea NOTE XX ; Start 05/20/18 at 03:00 Glucose (Glutose) 15 gm Q15M PRN PO DECREASED GLUCOSE; Start 05/20/18 at 03:00 Glucose (Glutose) 22.5 gm Q15M PRN PO DECREASED GLUCOSE; Start 05/20/18 at 03:00 Dextrose (D50w Syringe) 25 ml Q15M PRN IV DECREASED GLUCOSE; Start 05/20/18 at 03:00 Dextrose (D50w Syringe) 50 ml Q15M PRN IV DECREASED GLUCOSE; Start 05/20/18 at 03:00 Glucagon (Glucagen) 1 mg Q15M PRN IM DECREASED GLUCOSE; Start 05/20/18 at 03:00 Glucose (Glutose) 15 gm Q15M PRN BUCCAL DECREASED GLUCOSE; Start 05/20/18 at 03:00 Metoprolol Succinate (Toprol Xl) 12.5 mg BID PO Last administered on 05/24/18 22:06; Admin Dose 12.5 MG; Start 05/20/18 at 21:00 Spironolactone (Aldactone) 12.5 mg DAILY PO Last administered on 05/25/18 08:18; Admin Dose 12.5 MG; Start 05/21/18 at 09:00 Albuterol/ Ipratropium (Duoneb) 3 ml Q6H RESP THERAPY HHN Last administered on 05/25/18at 15:32; Admin Dose 3 ML; Start 05/21/18 at 14:00 Enoxaparin Sodium (Lovenox) 40 mg DAILY SC Last administered on 05/25/18 08:34; Admin Dose 40 MG; Start 05/21/18 at 16:30 Aspirin (Aspirin) 81 mg DAILY PO Last administered on 05/25/18 08:19; Admin Dose 81 MG; Start 05/22/18 at 09:00 Furosemide (Lasix) 20 mg BID PO Last administered on 05/25/18 08:19; Admin Dose 20 MG; Start 05/24/18 at 21:00 Metformin HCl (Glucophage) 500 mg BID WITH MEALS PO Last administered on 08:18; Admin Dose 500 MG; Start 05/24/18 at 18:00 Diagnostic Test (Pha) (Accu-Chek) 1 ea AC MEALS AND BEDTIME XX Last administered on 05/24/18 21:00; Admin Dose 1 EA; Start 05/24/18 at 17:30 Prednisone (Prednisone) 30 mg DAILY PO Last administered on 05/25/18 08:17; Admin Dose 30 MG; Start 05/25/18 at 09:00 GLADYS CASIANO MD May 25, 2018 17:24
[2018-05-25] MEDS: AMITRIPTYLINE 25 MG TAB PO SCH (20:48)
[2018-05-26] VITALS (10 sets, daily range): BP systolic 93–110; BP diastolic 50–58; PULSE 55–88; RESP 19–20
[2018-05-26] MEDS: ALBUTEROL/IPRATROPIUM (NEB) 3 ML AMP HHN SCH ×3 (02:03→13:56)
[2018-05-26] MEDS: LEVOTHYROXINE 100 MCG TAB PO SCH (06:05)
[2018-05-26] MEDS: ACCU-CHEK XX SCH ×3 (07:00→16:54)
[2018-05-26] MEDS: INSULIN ASPART [NOVOLOG] 3 ML PEN SC SCH ×3 (07:59→16:57)
[2018-05-26] MEDS: FAMOTIDINE 20 MG TAB PO SCH (08:05)
[2018-05-26] MEDS: ASPIRIN 81 MG TAB PO SCH (08:05)
[2018-05-26] MEDS: metFORMIN 500 MG TAB PO SCH ×2 (08:05→16:54)
[2018-05-26] MEDS: predniSONE 10 MG TAB PO SCH (08:05)
[2018-05-26] MEDS: METOPROLOL (XL) 25 MG TAB PO SCH ×2 (08:06→13:04)
[2018-05-26] MEDS: FUROSEMIDE 20 MG TAB PO SCH (08:06)
[2018-05-26] MEDS: LISINOPRIL 5 MG TAB PO SCH (08:06)
[2018-05-26] MEDS: SPIRONOLACTONE 25 MG TAB PO SCH (08:07)
[2018-05-26] MEDS: ENOXAPARIN 40 MG/0.4 ML SYG SC SCH (08:13)
[2018-05-26] MEDS: BUDESONIDE (NEB) 0.5MG/2ML AMP HHN SCH (09:05)
--- NOTE | 2018-05-26 10:51 | CONS ---
Assessment/Plan Assessment/Plan Assessment/Plan (Daily) Assessment and recommendations; 1. Patient admitted for severe exacerbation with likely underlying chronic type II respiratory failure with persistent hypercapnia. 2. History of hypertension and hypothyroidism. Continue current supportive care. Patient will need to have noninvasive positive pressure ventilator at home for nocturnal use. Consultation Date/Type/Reason Admit Date/Time May 20, 2018 at 00:00 Initial Consult Date 05/21/18 Type of Consult Pulmonary Patient is a 72-year-old lady who came into the hospital with a 2-day history of coughing with some shortness of breath. Upon evaluation a chest x-ray was done which is showing mild cardiomegaly, ABG also was done which is showing hypoxemic and hypercapnic respiratory failure which is partly compensated. By the time I saw the patient in the room, patient feeling much better and denies any further shortness of breath, also denies any nocturnal symptoms of shortness of breath at home, any daytime sleepiness or fatigue. According to her she is in gene rally good health at home. She denies any recent high fever, body aches or myalgias. Past medical history; 1 history of head and neck cancer, status post extensive right neck resection several years ago. 2. History of hypertension 3. Possibly COPD with chronic type II respiratory failure. 4. History of hypothyroidism. Medications; reviewed. Allergies; none. Social history; patient has an extensive smoking history. Family history; patient lives with her daughter at home. No history of any malignancy in the family. 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 Review of systems; denies any headache, seizures, visual changes. Any sinus symptoms. Denies any dysphagia. Shortness of breath has improved significantly since admission. Complains of very minimal cough, denies any wheezing, sputum production hemoptysis. Denies any abdominal pain, nausea vomiting. Any fever or chills. Any body aches or myalgias. Any orthopnea. Any snoring, daytime sleepiness or fatigue. General exam; elderly lady, awake alert, currently in no distress. On 2 L nasal cannula. Requesting Provider: GLADYS CASIANO MD Date/Time of Note DATE: 05/26/18 TIME: 10:49 24 HR Interval Summary Free Text/Dictation Patient's condition is stable. Denies any shortness of breath, coughing, wheezing. General exam; elderly female, awake alert, currently in no distress. Exam/Review of Systems Exam Vitals Vital Signs Date Temp Pulse Resp B/P (MAP) Pulse Ox O2 O2 Flow FiO2 Time Delivery Rate 05/26/18 Nasal 2.0 10:10 Cannula 05/26/18 73 18 99 09:02 05/26/18 97.5 95/56 (69) 08:02 05/25/18 28 02:01 Intake and Output 05/25/18 05/25/18 05/26/18 1515:00 23:00 07:00 IntakeIntake Total 1150 ml 250 ml BalanceBalance 1150 ml 250 ml Exam H EENT exam; supple neck, no JVD. No lymphadenopathy. Midline trachea. No thyromegaly. Pharynx is clear. Chest exam; diminished but clear breath sounds. S1-S2 audible, no murmurs. Regular rhythm. Abdomen exam; soft, no organomegaly. Bowel sounds audible. Extremity exam; no peripheral edema clubbing. 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 Results Result Diagram: 05/25/18 0530 05/25/18 0530 Results 24hrs Laboratory Tests Test 05/25/18 12:14 05/25/18 17:21 05/25/18 20:46 05/26/18 07:37 Bedside Glucose 176 175 151 83 Medications Medication Current Medications Acetaminophen (Tylenol Tab) 650 mg Q6H PRN PO MILD PAIN(1-3)OR ELEVATED TEMP; Start 05/20/18 at 03:00 Insulin Aspart (Novolog Insulin Pen) NOVOLOG *MILD* ALGORITHM WITH MEALS BEDTIME SC Last administered on 05/25/18at 17:26; Admin Dose 1 UNIT; Start 05/20/18 at 08:00 Amitriptyline HCl (Elavil) 25 mg HS PO Last administered on 05/25/18at 20:48; Admin Dose 25 MG; Start 05/20/18 at 21:00 Budesonide (Pulmicort (Neb)) 0.5 mg BID RESP THERAPY HHN Last administered on 05/26/18at 09:05; Admin Dose 0.5 MG; Start 05/20/18 at 09:00 Diltiazem HCl (Cardizem Iv) 10 mg Q6 PRN IV ELEVATED HEART RATE; Start 05/20/18 at 03:00 Famotidine (Pepcid) 20 mg BID PO Last administered on 05/26/18at 08:05; Admin Dose 20 MG; Start 05/20/18 at 09:00 Albuterol/ Ipratropium (Duoneb) 3 ml Q4H RESP THERAPY PRN HHN SHORTNESS OF BREATH Last administered on 05/20/18at 21:05; Admin Dose 3 ML; Start 05/20/18 at 03:00 Levothyroxine Sodium (Synthroid) 100 mcg DAILY@06 PO Last administered on 05/26/18at 06:05; Admin Dose 100 MCG; Start 05/20/18 at 06:00 Lisinopril (Zestril) 2.5 mg DAILY PO Last administered on 05/25/18at 08:19; Admin Dose 2.5 MG; Start 05/20/18 at 09:00 Miscellaneous Information 1 ea NOTE XX ; Start 05/20/18 at 03:00 Glucose (Glutose) 15 gm Q15M PRN PO DECREASED GLUCOSE; Start 05/20/18 at 03:00 Glucose (Glutose) 22.5 gm Q15M PRN PO DECREASED GLUCOSE; Start 05/20/18 at 03:00 Dextrose (D50w Syringe) 25 ml Q15M PRN IV DECREASED GLUCOSE; Start 05/20/18 at 03:00 Dextrose (D50w Syringe) 50 ml Q15M PRN IV DECREASED GLUCOSE; Start 05/20/18 at 03:00 Glucagon (Glucagen) 1 mg Q15M PRN IM DECREASED GLUCOSE; Start 05/20/18 at 03:00 Glucose (Glutose) 15 gm Q15M PRN BUCCAL DECREASED GLUCOSE; Start 05/20/18 at 03:00 Metoprolol Succinate (Toprol Xl) 12.5 mg BID PO Last administered on 05/25/18at 20:49; Admin Dose 12.5 MG; Start 05/20/18 at 21:00 Spironolactone (Aldactone) 12.5 mg DAILY PO Last administered on 05/26/18at 08:07; Admin Dose 12.5 MG; Start 05/21/18 at 09:00 Albuterol/ Ipratropium (Duoneb) 3 ml Q6H RESP THERAPY HHN Last administered on 05/26/18at 08:53; Admin Dose 3 ML; Start 05/21/18 at 14:00 Enoxaparin Sodium (Lovenox) 40 mg DAILY SC Last administered on 05/26/18 08:13; Admin Dose 40 MG; Start 05/21/18 at 16:30 Aspirin (Aspirin) 81 mg DAILY PO Last administered on 05/26/18 08:05; Admin Dose 81 MG; Start 05/22/18 at 09:00 Furosemide (Lasix) 20 mg BID PO Last administered on 05/26/18 08:06; Admin Dose 20 MG; Start 05/24/18 at 21:00 Metformin HCl (Glucophage) 500 mg BID WITH MEALS PO Last administered on 05/26/18 08:05; Admin Dose 500 MG; Start 05/24/18 at 18:00 Diagnostic Test (Pha) (Accu-Chek) 1 ea AC MEALS AND BEDTIME XX Last administered on 05/25/18at 20:50; Admin Dose 1 EA; Start 05/24/18 at 17:30 Prednisone (Prednisone) 30 mg DAILY PO Last administered on 05/26/18 08:05; Admin Dose 30 MG; Start 05/25/18 at 09:00 ROSAURA KU May 26, 2018 10:51
--- NOTE | 2018-05-26 12:49 | QN ---
Documentation Comment pt seen and examined see dc summary GLADYS CASIANO MD May 26, 2018 12:49
--- NOTE | 2018-05-26 12:51 | PDOCDIS ---
Discharge Instructions DIAGNOSIS Discharge Diagnosis CHF COPD CONDITION [id number] Patient Condition: [id number] Fair HOME CARE INSTRUCTIONS: [id number] Diet Instructions: Euhbs4y Low Fat /Cholesterol [id number] Special Diet: Kuteq6u carb controlled ACTIVITY: [id number] Activity Restrictions: [id number] Slowly Increase Activity Rest between Activity Avoid heavy lifting FOLLOW UP/APPOINTMENTS Follow-up Plan f/u PCP in 1 week fu cards in 1-2 weeks fu pulmonary in 1-2 week cw home oxygen, [facility] USE FWW check FS at home with glucometer, fu PCP for that Return to ER if has chest pain/sob GLADYS CASIANO MD May 26, 2018 12:51
[2018-05-26] MEDS ORDERED: BUDESONIDE HHN (12:53)
[2018-05-26] MEDS ORDERED: PRED20TA PO (12:53)
[2018-05-26] MEDS ORDERED: ASPI-831 PO (12:53)
[2018-05-26] MEDS ORDERED: METO-335 PO (12:53)
[2018-05-26] MEDS ORDERED: METF-849 PO (12:53)
[2018-05-26] MEDS ORDERED: LAS20 PO (12:53)
--- NOTE | 2018-05-26 13:45 | CONS ---
Assessment/Plan Assessment/Plan Hospital Course (Demo Recall) IMPRESSION: 1. Congestive heart failure, mitral valve, systolic, acute. 2. Cardiomyopathy with decreased left ventricular ejection fraction noted to be 25% to 30% by outside hospital echo. 3. Hypertension with currently borderline hypotension. 4. Diabetes mellitus. 5. Hypothyroidism. 6. Ongoing tobacco usage, but with E-cigarettes at this time. 7. Chronic obstructive pulmonary disease. 8. Positive troponin-reportedly negative LHC at OSH Recc: -Tele -Continue BB/ACEI as tolerated only at very low dose for treatment of cardiomyopathy -Continue lasix/aldactone and follow volume status closely and will increase dose of lasix -Continue asa -OK for d/c with outpatient f/u with me and will give patient my info to obtain f/u appt Consultation Date/Type/Reason Admit Date/Time May 20, 2018 at 00:00 Initial Consult Date 05/21/18 Type of Consult Cardiology Reason for Consultation CHF Requesting Provider: GLADYS CASIANO MD Date/Time of Note DATE: 05/26/18 TIME: 13:43 Exam/Review of Systems Vital Signs Vitals Vital Signs Date Temp Pulse Resp B/P (MAP) Pulse Ox O2 O2 Flow FiO2 Time Delivery Rate 05/26/18 97.5 75 19 93/50 (64) 97 Nasal 1.0 11:05 Cannula 05/25/18 28 02:01 Intake and Output 05/25/18 05/25/18 05/26/18 1515:00 23:00 07:00 IntakeIntake Total 1150 ml 250 ml BalanceBalance 1150 ml 250 ml Exam Exam Review of Systems: CONSTITUTIONAL: No fevers, chills. PULMONARY: No sob CARDIOVASCULAR: No chest pain/palpitations GASTROINTESTINAL: No nausea/vomiting. GENITOURINARY: No hematuria/dysuria. MUSCULOSKELETAL: No myagias/arthalgias. PSYCHIATRIC: The patient denies depression. NEUROLOGIC: No weakness Constitutional: alert Psych: no complaints Head: normocephalic ENMT: mucosa pink and moist Neck: supple, jvd (9 cm water) Respiratory: diminished breath sounds (at bases/B) Cardiovascular: regular rate and rhythm Gastrointestinal: soft, non-tender Musculoskeletal: muscle tone (normal) Extremities: edema (none) Neurological: other (No focal deficits) Labs Result Diagram: 4/16/19 0530 4/16/19 0530 Results 24hrs Laboratory Tests Test 05/25/18 17:21 05/25/18 20:46 05/26/18 07:37 05/26/18 11:52 Bedside Glucose 175 151 83 189 Medications Medications Current Medications Acetaminophen (Tylenol Tab) 650 mg Q6H PRN PO MILD PAIN(1-3)OR ELEVATED TEMP; Start 05/20/18 at 03:00 Insulin Aspart (Novolog Insulin Pen) NOVOLOG *MILD* ALGORITHM WITH MEALS BEDTIME SC Last administered on 05/26/18at 12:17; Admin Dose 2 UNIT; Start 05/20/18 at 08:00 Amitriptyline HCl (Elavil) 25 mg HS PO Last administered on 05/25/18at 20:48; Admin Dose 25 MG; Start 05/20/18 at 21:00 Budesonide (Pulmicort (Neb)) 0.5 mg BID RESP THERAPY HHN Last administered on 05/26/18at 09:05; Admin Dose 0.5 MG; Start 05/20/18 at 09:00 Diltiazem HCl (Cardizem Iv) 10 mg Q6 PRN IV ELEVATED HEART RATE; Start 05/20/18 at 03:00 Famotidine (Pepcid) 20 mg BID PO Last administered on 05/26/18at 08:05; Admin Dose 20 MG; Start 05/20/18 at 09:00 Albuterol/ Ipratropium (Duoneb) 3 ml Q4H RESP THERAPY PRN HHN SHORTNESS OF BREATH Last administered on 05/20/18at 21:05; Admin Dose 3 ML; Start 05/20/18 at 03:00 Levothyroxine Sodium (Synthroid) 100 mcg DAILY@06 PO Last administered on 05/26/18at 06:05; Admin Dose 100 MCG; Start 05/20/18 at 06:00 Lisinopril (Zestril) 2.5 mg DAILY PO Last administered on 05/25/18at 08:19; Admin Dose 2.5 MG; Start 05/20/18 at 09:00 Miscellaneous Information 1 ea NOTE XX ; Start 05/20/18 at 03:00 Glucose (Glutose) 15 gm Q15M PRN PO DECREASED GLUCOSE; Start 05/20/18 at 03:00 Glucose (Glutose) 22.5 gm Q15M PRN PO DECREASED GLUCOSE; Start 05/20/18 at 03:00 Dextrose (D50w Syringe) 25 ml Q15M PRN IV DECREASED GLUCOSE; Start 05/20/18 at 03:00 Dextrose (D50w Syringe) 50 ml Q15M PRN IV DECREASED GLUCOSE; Start 05/20/18 at 03:00 Glucagon (Glucagen) 1 mg Q15M PRN IM DECREASED GLUCOSE; Start 05/20/18 at 03:00 Glucose (Glutose) 15 gm Q15M PRN BUCCAL DECREASED GLUCOSE; Start 05/20/18 at 03:00 Metoprolol Succinate (Toprol Xl) 12.5 mg BID PO Last administered on 05/26/18 13:04; Admin Dose 12.5 MG; Start 05/20/18 at 21:00 Spironolactone (Aldactone) 12.5 mg DAILY PO Last administered on 05/26/18 08:07; Admin Dose 12.5 MG; Start 05/21/18 at 09:00 Albuterol/ Ipratropium (Duoneb) 3 ml Q6H RESP THERAPY HHN Last administered on 05/26/18 08:53; Admin Dose 3 ML; Start 05/21/18 at 14:00 Enoxaparin Sodium (Lovenox) 40 mg DAILY SC Last administered on 05/26/18 08:13; Admin Dose 40 MG; Start 05/21/18 at 16:30 Aspirin (Aspirin) 81 mg DAILY PO Last administered on 05/26/18 08:05; Admin Dose 81 MG; Start 05/22/18 at 09:00 Furosemide (Lasix) 20 mg BID PO Last administered on 05/26/18 08:06; Admin Dose 20 MG; Start 05/24/18 at 21:00 Metformin HCl (Glucophage) 500 mg BID WITH MEALS PO Last administered on 08:05; Admin Dose 500 MG; Start 05/24/18 at 18:00 Diagnostic Test (Pha) (Accu-Chek) 1 ea AC MEALS AND BEDTIME XX Last administered on 05/25/18 20:50; Admin Dose 1 EA; Start 05/24/18 at 17:30 CAR YEN May 26, 2018 13:45
== END 2018-05-26 19:20 | disposition home health service (06) | DRG 291 ==
LOC: UNDOADMIN 23:47 → 6WM 23:47
PROVIDERS: ADMIT Internal Medicine; ATTEND Internal Medicine
PROC: 4A133R1 Monitoring of Arterial Saturation, Peripheral, Percutaneous Approach (ICD-10-PCS; principal; 2018-05-20)
DX: I11.0 Hypertensive heart disease with heart failure (principal); I50.21 Acute systolic (congestive) heart failure; J96.21 Acute and chronic respiratory failure with hypoxia; J96.22 Acute and chronic respiratory failure with hypercapnia; J44.1 Chronic obstructive pulmonary disease with (acute) exacerbation; E11.8 Type 2 diabetes mellitus with unspecified complications; E66.9 Obesity, unspecified; Z68.28 Body mass index [BMI] 28.0-28.9, adult; E03.9 Hypothyroidism, unspecified; E78.5 Hyperlipidemia, unspecified; R74.8 Abnormal levels of other serum enzymes; I42.9 Cardiomyopathy, unspecified; F17.290 Nicotine dependence, other tobacco product, uncomplicated; Z82.49 Family history of ischemic heart disease and other diseases of the circulatory system; Z92.3 Personal history of irradiation; Z85.850 Personal history of malignant neoplasm of thyroid
CPT/HCPCS: 36600; 71045; 80048; 80061; 82550; 82553; 82803; 82962; 83036; 83735; 83880; 84100; 84484; 85025; 87081; 93005; 94640; 94660; 94664; 97162; J1120; J1650; J1815; J2920; J7512